=== PATIENT | female | born 1955 | race Hispanic/Latino ===

== ENCOUNTER 2018-03-20 22:16 | Inpatient (IN) | payer BC ==
[2018-03-21 00:58] LABS: Hematocrit 44.3 % (30.3-42.9); Hemoglobin 14.8 gm/dl (10.1-14.3); Mean Corpuscular HGB Conc 34 % (30-34); Mean Corpuscular Hemoglobin 30 pg (28-32); Mean Corpuscular Volume 88 fl (79-97); Platelet Count 204 K/mm3 (140-440); Red Blood Count 5.02 M/mm3 (3.65-5.03)
[2018-03-21 01:02] LABS: Bacteria,Urine 3+ /HPF (Negative); Bilirubin,Urine NEG (Negative); Blood,Urine LG (Negative); Color,Urine Amber (Yellow); Hyaline Casts,Urine 75 /LPF; Mucus,Urine 3+ /HPF
[2018-03-21 01:05] LABS: WBC,Urine > 182.0 /HPF (0.0-6.0)
[2018-03-21 01:14] LABS: Alanine Aminotransferase 14 units/L (7-56); Albumin 4.3 g/dL (3.9-5); BUN/Creatinine Ratio 12; Blood Urea Nitrogen 11 mg/dL (7-17); Calcium 9.4 mg/dL (8.4-10.2); Hemolysis Index 5
[2018-03-21] MEDS ORDERED: ZOFRAN IV ONE (02:32)
[2018-03-21] MEDS ORDERED: TYLENOL PO ONE (02:45)
[2018-03-21 04:08] LABS: Anisocytosis 1+; Band Neutrophils # (Manual) 0.7 K/mm3; Basophils % (Manual) 0 % (0.0-1.8); Eosinophils % (Manual) 0 % (0.0-4.3); Total Cells Counted 100
[2018-03-21] MEDS ORDERED: DILAUDID IV ONE (04:43)
[2018-03-21] MEDS ORDERED: cefTRIAXone 2 GM in NACL 0.9% 20 ML IV ONE (04:43)
--- NOTE | 2018-03-21 04:48 | Emergency Department Report ---
ED Fever HPI - General Chief Complaint: Abdominal Pain Stated Complaint: FEVER,ABDOMINAL PAIN,N/V Time Seen by Provider: 03/21/18 04:33 Source: patient - History of Present Illness Initial Comments: Ms. Christian is a 62-year-old female with history of hypertension and atrial fibrillation. She presents with 2 days of left flank pain. She has fever and chills. Has global headache. Left flank pain radiates to the left upper quadrant and left lower quadrant. Initially when she was evaluated and treated for UTI. She had mild symptoms with dysuria and urinary frequency. She was initially treated with local. Her doctor later changed the medication to doxycycline. She do not have any further symptoms. On Tuesday she developed left flank pain. Subsequently she developed fever and chills. She has nonspecific headache. Timing/Duration: week Fever Severity/Quality: subjective Associated Symptoms: headache, other (flank pain) ED Review of Systems ROS: Stated complaint: FEVER,ABDOMINAL PAIN,N/V Other details as noted in HPI Comment: All other systems reviewed and negative ED Past Medical Hx - Past Medical History Previous Medical History?: Yes Hx Hypertension: Yes Hx Headaches / Migraines: Yes Additional medical history: AFIB - Surgical History Past Surgical History?: Yes Additional Surgical History: Hysterectomy, Back surgery, Spinal Stenosis - Social History Smoking Status: Never Smoker ED Physical Exam - General Limitations: No Limitations General appearance: alert, in no apparent distress, other (very warm to touch) - Head Head exam: Present: atraumatic, normocephalic - Eye Eye exam: Present: normal appearance - ENT ENT exam: Present: mucous membranes moist - Neck Neck exam: Present: normal inspection - Respiratory Respiratory exam: Present: normal lung sounds bilaterally. Absent: respiratory distress, wheezes, rales, rhonchi - Cardiovascular Cardiovascular Exam: Present: regular rate, normal rhythm, normal heart sounds. Absent: systolic murmur, diastolic murmur, rubs, gallop - GI/Abdominal GI/Abdominal exam: Present: soft, normal bowel sounds. Absent: distended, tenderness, guarding, rebound - Extremities Exam Extremities exam: Present: normal inspection - Back Exam Back exam: Present: normal inspection. Absent: CVA tenderness (R), CVA tenderness (L) - Neurological Exam Neurological exam: Present: alert, oriented X3 - Psychiatric Psychiatric exam: Present: normal affect, normal mood - Skin Skin exam: Present: warm, dry, intact, normal color. Absent: rash ED Course Vital Signs 03/20/18 03/20/18 03/21/18 22:39 23:54 03:43 Temperature 100.0 F H 100.0 F H Pulse Rate 94 H 100 H Respiratory 18 18 16 Rate Blood Pressure 123/79 123/79 O2 Sat by Pulse 95 95 Oximetry ED Medical Decision Making - Lab Data Result diagrams: 03/21/18 00:35 03/21/18 00:35 Laboratory Results - last 24 hr 03/20/18 03/21/18 03/21/18 Unknown 00:35 00:35 WBC 22.8 H RBC 5.02 Hgb 14.8 H Hct 44.3 H MCV 88 MCH 30 MCHC 34 RDW 13.0 L Plt Count 204 Add Manual Diff Complete Total Counted 100 Seg Neuts % (Manual) 73.0 H Band Neutrophils % 3.0 Lymphocytes % (Manual) 17.0 Reactive Lymphs % (Man) 0 Monocytes % (Manual) 7.0 Eosinophils % (Manual) 0 Basophils % (Manual) 0 Metamyelocytes % 0 Myelocytes % 0 Promyelocytes % 0 Blast Cells % 0 Nucleated RBC % Not Reportable Seg Neutrophils # Man 16.6 H Band Neutrophils # 0.7 Lymphocytes # (Manual) 3.9 Abs React Lymphs (Man) 0.0 Monocytes # (Manual) 1.6 H Eosinophils # (Manual) 0.0 Basophils # (Manual) 0.0 Metamyelocytes # 0.0 Myelocytes # 0.0 Promyelocytes # 0.0 Blast Cells # 0.0 WBC Morphology Not Reportable Hypersegmented Neuts Not Reportable Hyposegmented Neuts Not Reportable Hypogranular Neuts Not Reportable Smudge Cells Not Reportable Toxic Granulation Not Reportable Toxic Vacuolation Not Reportable Dohle Bodies Not Reportable Pelger-Huet Anomaly Not Reportable Negar Rods Not Reportable Platelet Estimate Appears normal Clumped Platelets Not Reportable Plt Clumps, EDTA Not Reportable Large Platelets Not Reportable Giant Platelets Not Reportable Platelet Satelliting Not Reportable Plt Morphology Comment Not Reportable RBC Morphology Not Reportable Dimorphic RBCs Not Reportable Polychromasia Not Reportable Hypochromasia Not Reportable Poikilocytosis Not Reportable Anisocytosis 1+ Microcytosis Not Reportable Macrocytosis Not Reportable Spherocytes Not Reportable Pappenheimer Bodies Not Reportable Sickle Cells Not Reportable Target Cells Not Reportable Tear Drop Cells Not Reportable Ovalocytes Not Reportable Helmet Cells Not Reportable [place] Bodies Not Reportable [place] Rings Not Reportable Angel Cells Not Reportable Bite Cells Not Reportable Crenated Cell Not Reportable Elliptocytes Not Reportable Acanthocytes (Spur) Not Reportable Rouleaux Not Reportable Hemoglobin C Crystals Not Reportable Schistocytes Not Reportable Malaria parasites Not Reportable Colin Bodies Not Reportable Hem Pathologist Commnt No Sodium 135 L Potassium 4.6 Chloride 94.5 L Carbon Dioxide 28 Anion Gap 17 BUN 11 Creatinine 0.9 Estimated GFR > 60 BUN/Creatinine Ratio 12 Glucose 136 H Calcium 9.4 Total Bilirubin 0.80 AST 14 ALT 14 Alkaline Phosphatase 78 Total Protein 7.8 Albumin 4.3 Albumin/Globulin Ratio 1.2 Lipase Urine Color [place] Urine Turbidity Cloudy Urine pH 5.0 Ur Specific [place] 1.020 Urine Protein 30 mg/dl Urine Glucose (UA) Neg Urine Ketones 20 Urine Blood Lg Urine Nitrite Neg Urine Bilirubin Neg Urine Urobilinogen 2.0 Ur Leukocyte Esterase Mod Urine WBC (Auto) > 182.0 H Urine RBC (Auto) 20.0 U Epithel Cells (Auto) 3.0 Urine Bacteria (Auto) 3+ Hyaline Casts 75 Urine Mucus 3+ 03/21/18 00:35 WBC RBC Hgb Hct MCV MCH MCHC RDW Plt Count Add Manual Diff Total Counted Seg Neuts % (Manual) Band Neutrophils % Lymphocytes % (Manual) Reactive Lymphs % (Man) Monocytes % (Manual) Eosinophils % (Manual) Basophils % (Manual) Metamyelocytes % Myelocytes % Promyelocytes % Blast Cells % Nucleated RBC % Seg Neutrophils # Man Band Neutrophils # Lymphocytes # (Manual) Abs React Lymphs (Man) Monocytes # (Manual) Eosinophils # (Manual) Basophils # (Manual) Metamyelocytes # Myelocytes # Promyelocytes # Blast Cells # WBC Morphology Hypersegmented Neuts Hyposegmented Neuts Hypogranular Neuts Smudge Cells Toxic Granulation Toxic Vacuolation Dohle Bodies Pelger-Huet Anomaly Negar Rods Platelet Estimate Clumped Platelets Plt Clumps, EDTA Large Platelets Giant Platelets Platelet Satelliting Plt Morphology Comment RBC Morphology Dimorphic RBCs Polychromasia Hypochromasia Poikilocytosis Anisocytosis Microcytosis Macrocytosis Spherocytes Pappenheimer Bodies Sickle Cells Target Cells Tear Drop Cells Ovalocytes Helmet Cells [place] Bodies [place] Rings [place] Cells Bite Cells Crenated Cell Elliptocytes Acanthocytes (Spur) Rouleaux Hemoglobin C Crystals Schistocytes Malaria parasites Colin Bodies Hem Pathologist Commnt Sodium Potassium Chloride Carbon Dioxide Anion Gap BUN Creatinine Estimated GFR BUN/Creatinine Ratio Glucose Calcium Total Bilirubin AST ALT Alkaline Phosphatase Total Protein Albumin Albumin/Globulin Ratio Lipase 17 Urine Color Urine Turbidity Urine pH Ur Specific [place] Urine Protein Urine Glucose (UA) Urine Ketones Urine Blood Urine Nitrite Urine Bilirubin Urine Urobilinogen Ur Leukocyte Esterase Urine WBC (Auto) Urine RBC (Auto) U Epithel Cells (Auto) Urine Bacteria (Auto) Hyaline Casts Urine Mucus Vital Signs - 24 hr 03/20/18 03/20/18 03/21/18 22:39 23:54 03:43 Temperature 100.0 F H 100.0 F H Pulse Rate 94 H 100 H Respiratory 18 18 16 Rate Blood Pressure 123/79 123/79 O2 Sat by Pulse 95 95 Oximetry - Medical Decision Making Ms. Mendoza presents with acute pyelonephritis left-sided. Admitted to hospitalist for treatment of severe pain and persistent nausea. First dose IV ceftriaxone given in ED. CT kidney stone protocol ordered. Critical care attestation.: If time is entered above; I have spent that time in minutes in the direct care of this critically ill patient, excluding procedure time. ED Disposition Clinical Impression: Acute pyelonephritis Disposition: OP ADMIT IP TO THIS HOSP Is pt being admited?: Yes Does the pt Need Aspirin: No Condition: Stable Referrals: LEONARD MOROCHO MD [Primary Care Provider] - 3-5 Days Time of Disposition: 04:49
--- NOTE | 2018-03-21 05:39 | Cat Scan Report ---
FINAL REPORT EXAM: CT ABDOMEN PELVIS WO CON HISTORY: left flank pain fever TECHNIQUE: Routine axial imaging was obtained of the abdomen and pelvis without oral or IV contrast. Sagittal and coronal reconstructions were reviewed. FINDINGS: Images through lung bases do not show infiltrates or effusions. The liver is normal size and reveals diminished attenuation compatible with hepatic steatosis. The gallbladder reveals a solitary laminated calcified stone. There are no secondary signs of acute cholecystitis. The biliary tree appears normal. The pancreas, spleen, and adrenal glands appear normal. The kidneys reveal moderate left-sided hydronephrosis secondary to a partially obstructing 6.3 mm stone in the distal right ureter. There are no additional renal stones. There is calcification of the abdominal aorta. The bowel loops are normal in caliber and course. The appendix is not seen with certainty. The uterus has been removed. The bladder appears normal. The skeletal structures reveal arthritic changes lower lumbar spine. IMPRESSION: Moderate left-sided hydronephrosis secondary to a partially obstructing 6.3 mm stone in the distal right ureter. Hepatic steatosis. Gallstones. No secondary signs of acute cholecystitis. Hysterectomy. 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
[2018-03-21] MEDS ORDERED: NORCO 5/325 PO PRN (08:03)
--- NOTE | 2018-03-21 08:14 | History and Physical Report ---
History of Present Illness Date of examination: 03/21/18 Date of admission: 03/21/18 Chief complaint: Left lumbar pain History of present illness: Ms. Christian is a 62-year-old female with history of hypertension and atrial fibrillation presents with 2 days history of left flank pain. She also admits fever and chills. States her Left flank pain radiates to the left lower quadrant to grain area. She also states that she had mild symptoms with dysuria and urinary frequency earlier last week. She was initially treated with abx for UTI and Her doctor later changed the medication to doxycycline. Her initial symptom improved after starting antibiotics but since Tuesday morning she developed left flank pain, followed by fever and chills. As the pain was getting worse she decided to come to hospital. In the ER CT abdomen/pelvis without contrast showed left hydronephrosis and left ureteric 6.8 mm stone. Urology was consulted from the ER. Patient is getting admitted for further evaluation and management. Past medical History: h/o hypertension, migraine headache and atrial fibrillation Past surgical History: s/p hysterectomy in 2008 and back surgery on 2009 Social History: Lives with her sister, denies any smoking, drinking and elicit drug abuse. Family History: Significant for Alzheimer disease since, squamous cell cancer in father, cervical cancer in sister Review of System: Constitutional: + fever, + chills, no weight loss Ears, eyes, nose, mouth and throat: no nasal congestion, no nasal discharge, no sinus pressure, no vision change, no red eye. Neck: No neck pain or rigidity. Cardiovascular: No chest pain, no orthopnea, no palpitations, no leg swelling Respiratory: No shortness of breath, no cough, no congestion, no wheezing Gastrointestinal: + Left flank pain, + nausea, + vomiting Genitourinary : + dysuria, no hematuria Musculoskeletal: no joint swelling or muscle ache Integumentary: no rash, no pruritis Neurological: no parathesias, no numbness, no tingling Endocrine: no cold or heat intolerance, no polyuria or polydipsia Hematologic/Lymphatic: no easy bruising, no easy bleeding, no gland swelling Allergic/Immunologic: no urticaria, no angioedema. Medications and Allergies Allergies Allergy/AdvReac Type Severity Reaction Status Date / Time No Known Allergies Allergy Verified 03/21/18 04:50 Home Medications Medication Instructions Recorded Confirmed Last Taken Type Aspirin BABY CHEW TAB 81 mg PO DAILY 03/22/18 03/22/18 Unknown History Escitalopram Oxalate [Lexapro] 20 mg PO 03/22/18 Unknown History Metoprolol [Lopressor] 25 mg PO BID 03/22/18 03/22/18 Unknown History Active Meds: Active Medications Acetaminophen (Tylenol) 650 mg PO Q4H PRN PRN Reason: Pain MILD(1-3)/Fever >100.5/SHAW Acetaminophen/Hydrocodone Bitart ([place] 5/325) 2 each PO Q6H PRN PRN Reason: Pain, Moderate (4-6) Docusate Sodium (Colace) 100 mg PO BID JORGE LUIS Enoxaparin Sodium (Lovenox) 30 mg SUB-Q QDAY JORGE LUIS Famotidine (Pepcid) 10 mg PO BID JORGE LUIS Piperacillin Sod/Tazobactam Sod (Zosyn/Ns 3.375gm/50ml) 3.375 gm in 50 mls @ 100 mls/hr IV Q8HR JORGE LUIS; Protocol Dextrose/Sodium Chloride (D5ns) 1,000 mls @ 75 mls/hr IV DIRECT JORGE LUIS Morphine Sulfate (Morphine) 2 mg IV Q4H PRN PRN Reason: Pain, Moderate (4-6) Ondansetron HCl (Zofran) 4 mg IV Q8H PRN PRN Reason: Nausea And Vomiting Sodium Chloride (Sodium Chloride Flush Syringe 10 Ml) 10 ml IV PRN PRN PRN Reason: LINE FLUSH Sodium Chloride (Sodium Chloride Flush Syringe 10 Ml) 10 ml IV BID JORGE LUIS Exam - Physical Exam Narrative exam: GENERAL: well-developed morbidly obese white female lying on bed appeared to be in no discomfort. HEENT: Normocephalic. Atraumatic. No conjunctival congestion or icterus. Patient has moist mucous membranes. NECK: Supple. Trachea midline. CHEST/LUNGS: Clear to auscultated bilaterally, breathing nonlabored. No wheezes crackles or rhonchi. HEART/CARDIOVASCULAR: Regular in rate and rhythm. S1 and S2 positive. ABDOMEN: Abdomen is soft, left CVA tenderness on deep palpation. Patient has normal bowel sounds. SKIN: There is no rash. Warm and dry. NEURO: No focal motor deficit. Follows command. MUSCULOSKELETAL: No joint effusion or tenderness. EXTRIMITY: No edema, no cyanosis or clubbing. PSYCH: Cooperative. - Constitutional Vitals: Temp Pulse Resp BP Pulse Ox 98.6 F 72 18 110/61 100 03/21/18 07:00 03/21/18 07:00 03/21/18 07:00 03/21/18 07:00 03/21/18 07:00 Results - Labs CBC & Chem 7: 03/22/18 07:54 03/22/18 07:54 Labs: Abnormal lab results 03/20/18 03/21/18 03/21/18 Range/Units Unknown 00:35 00:35 WBC 22.8 H (4.5-11.0) K/mm3 Hgb 14.8 H (10.1-14.3) gm/dl Hct 44.3 H (30.3-42.9) % RDW 13.0 L (13.2-15.2) % Seg Neuts % (Manual) 73.0 H (40.0-70.0) % Seg Neutrophils # Man 16.6 H (1.8-7.7) K/mm3 Monocytes # (Manual) 1.6 H (0.0-0.8) K/mm3 Sodium 135 L (137-145) mmol/L Chloride 94.5 L (98-107) mmol/L Glucose 136 H (65-100) mg/dL Urine WBC (Auto) > 182.0 H (0.0-6.0) /HPF - Imaging and Cardiology CT scan - abdomen: report reviewed (left hydronephrosis with 6.8 mm ureteric stone) Assessment and Plan Sepsis, likely due to acute left pyelonephritis -We'll place on Zosyn empirically - Obtain urine culture and blood culture - Continue sepsis protocol, trend lactic acid Left hydronephrosis with left ureteric stone - Consulted Dr. Snyder, plan to take for cystoscopy today Hypertension, stable now - will continue to monitor History of paroxysmal Atrial fibrillation, - normal sinus rhythm now - Patient takes metoprolol tartrate 25 twice a day for rate control - Not on any anticoagulation at home Morbid obesity, dietary recommendation when clinically stable History of migraine, takes Lexapro outpatient DVT prophylaxis, with Lovenox
[2018-03-21] MEDS: MORPHINE IV PRN ×3 (08:16→21:47)
[2018-03-21] MEDS: ZOFRAN IV PRN ×2 (08:17→19:29)
[2018-03-21] MEDS: SODIUM CHLORIDE FLUSH SYRINGE 10 ML IV PRN (08:17)
--- NOTE | 2018-03-21 08:23 | Consultation ---
History of Present Illness - Reason for Consult Consult date: 03/14/18 - History of Present Illness Ms. Christian is a 62-year-old female with history of hypertension and atrial fibrillation. She presents with 2 days of left flank pain. She has fever and chills. Has global headache. Left flank pain radiates to the left upper quadrant and left lower quadrant. Initially when she was evaluated and treated for UTI. She had mild symptoms with dysuria and urinary frequency. She was initially treated with local. Her doctor later changed the medication to doxycycline. She do not have any further symptoms. On Tuesday she developed left flank pain. Subsequently she developed fever and chills. She has nonspecific headache. female family at bedside abd soft CTAP---6mm left distal stone A/P obstructing 6mm left distal stone npo cysto today written info given Medications and Allergies Allergies Allergy/AdvReac Type Severity Reaction Status Date / Time No Known Allergies Allergy Verified 03/21/18 04:50 Active Meds: Active Medications Acetaminophen (Tylenol) 650 mg PO Q4H PRN PRN Reason: Pain MILD(1-3)/Fever >100.5/SHAW Acetaminophen/Hydrocodone Bitart ([place] 5/325) 2 each PO Q6H PRN PRN Reason: Pain, Moderate (4-6) Docusate Sodium (Colace) 100 mg PO BID JORGE LUIS Enoxaparin Sodium (Lovenox) 30 mg SUB-Q QDAY JORGE LUIS Famotidine (Pepcid) 10 mg PO BID JORGE LUIS Piperacillin Sod/Tazobactam Sod (Zosyn/Ns 3.375gm/50ml) 3.375 gm in 50 mls @ 100 mls/hr IV Q8HR JORGE LUIS; Protocol Dextrose/Sodium Chloride (D5ns) 1,000 mls @ 75 mls/hr IV DIRECT JORGE LUIS Morphine Sulfate (Morphine) 2 mg IV Q4H PRN PRN Reason: Pain, Moderate (4-6) Last Admin: 03/21/18 08:16 Dose: 2 mg Ondansetron HCl (Zofran) 4 mg IV Q8H PRN PRN Reason: Nausea And Vomiting Last Admin: 03/21/18 08:17 Dose: 4 mg Sodium Chloride (Sodium Chloride Flush Syringe 10 Ml) 10 ml IV PRN PRN PRN Reason: LINE FLUSH Last Admin: 03/21/18 08:17 Dose: 10 ml Sodium Chloride (Sodium Chloride Flush Syringe 10 Ml) 10 ml IV BID JORGE LUIS Exam - Constitutional Vitals: Temp Pulse Resp BP Pulse Ox 98.6 F 72 18 110/61 100 03/21/18 07:00 03/21/18 07:00 03/21/18 08:16 03/21/18 07:00 03/21/18 07:00 Results - Labs CBC & Chem 7: 03/21/18 00:35 03/21/18 00:35 Labs: Abnormal lab results 03/20/18 03/21/18 03/21/18 Range/Units Unknown 00:35 00:35 WBC 22.8 H (4.5-11.0) K/mm3 Hgb 14.8 H (10.1-14.3) gm/dl Hct 44.3 H (30.3-42.9) % RDW 13.0 L (13.2-15.2) % Seg Neuts % (Manual) 73.0 H (40.0-70.0) % Seg Neutrophils # Man 16.6 H (1.8-7.7) K/mm3 Monocytes # (Manual) 1.6 H (0.0-0.8) K/mm3 Sodium 135 L (137-145) mmol/L Chloride 94.5 L (98-107) mmol/L Glucose 136 H (65-100) mg/dL Urine WBC (Auto) > 182.0 H (0.0-6.0) /HPF
[2018-03-21] MEDS ORDERED: LOVENOX SUB-Q SCH (10:00)
[2018-03-21] MEDS: ZOSYN/NS 3.375GM/50ML 3.375 GM/50 ML BAG IV SCH ×4 (10:01→23:43)
[2018-03-21] MEDS: TYLENOL PO PRN ×3 (10:10→21:47)
[2018-03-21] MEDS: LOVENOX SUB-Q SCH (10:22)
[2018-03-21] MEDS ORDERED: XYLOCAINE MPF 2% ONE (11:44)
[2018-03-21] MEDS ORDERED: DIPRIVAN 10 MG/ML IV ONE (11:45)
[2018-03-21] MEDS ORDERED: SUBLIMAZE ONE (11:45)
[2018-03-21] MEDS ORDERED: LACTATED RINGERS 1,000 ML ONE (11:46)
[2018-03-21] MEDS ORDERED: PEPCID IV ONE (11:46)
[2018-03-21] MEDS ORDERED: VERSED ONE (11:47)
--- NOTE | 2018-03-21 12:02 | Anesthesia Day of Surgery ---
Anesthesia Day of Surgery - Day of Surgery Patient Examined: Yes Patient H&P Reviewed: Yes Patient is NPO: Yes
--- NOTE | 2018-03-21 12:03 | Anesthesia Consultation ---
Anesthesia Consult and Med Hx Date of service: 03/21/18 - Airway Anesthetic Teeth Evaluation: Poor ROM Head & Neck: Adequate Mental/Hyoid Distance: Adequate Mallampati Class: Class IV Intubation Access Assessment: Possibly Difficult - Pulmonary Exam CTA: Yes - Cardiac Exam Cardiac Exam: RRR - Pre-Operative Health Status ASA Pre-Surgery Classification: ASA3 Proposed Anesthetic Plan: General (GERD controlled. LMA ok) - Cardiovascular System Hx Hypertension: Yes
[2018-03-21] MEDS ORDERED: ZOFRAN IV PRN (12:06)
[2018-03-21] MEDS ORDERED: DILAUDID IV PRN (12:06)
[2018-03-21] MEDS ORDERED: OMNIPAQUE 300 MG/50 ML (CATH LAB) IV ONE (12:20)
[2018-03-21] MEDS ORDERED: ZOFRAN ONE (12:30)
--- NOTE | 2018-03-21 12:43 | Post Operative Note ---
Pre-op diagnosis: left ureteral stone, UTI Post-op diagnosis: same Procedure: cysto, rpg, left stent----short internal string Anesthesia: MATT Surgeon: RUBY AMAYA Pathology: none Condition: stable Disposition: PACU (jose luis on chart, appt 1-2 weeks after discharge)
[2018-03-21] MEDS ORDERED: NARCAN 0.4 MG/1 ML IV PRN (12:45)
[2018-03-21] MEDS ORDERED: NACL 0.45% 1000 ML 1,000 ML IV SCH (13:00)
[2018-03-21] MEDS ORDERED: ANCEF/NS 1 GM/50 ML 1 GM/50 ML BAG IV SCH (13:00)
[2018-03-21] MEDS: SODIUM CHLORIDE FLUSH SYRINGE 10 ML IV SCH ×2 (14:22→21:49)
[2018-03-21] MEDS: COLACE PO SCH ×2 (14:22→21:50)
[2018-03-21] MEDS: PEPCID PO SCH ×2 (14:22→21:46)
[2018-03-21] MEDS: ceFAZolin 1 GM in NACL 0.9% 20 ML IV SCH ×3 (15:04→21:46)
[2018-03-22] MEDS: TYLENOL PO PRN ×3 (01:57→20:23)
[2018-03-22] MEDS: D5NS 1,000 ML IV SCH (02:08)
[2018-03-22] MEDS: MORPHINE IV PRN (02:08)
[2018-03-22] MEDS: ceFAZolin 1 GM in NACL 0.9% 20 ML IV SCH ×3 (05:39→21:42)
[2018-03-22] MEDS: ZOSYN/NS 3.375GM/50ML 3.375 GM/50 ML BAG IV SCH (05:53)
[2018-03-22 08:37] LABS: Hematocrit 35.9 % (30.3-42.9); Hemoglobin 12.4 gm/dl (10.1-14.3); Mean Corpuscular HGB Conc 34 % (30-34); Mean Corpuscular Hemoglobin 30 pg (28-32); Mean Corpuscular Volume 87 fl (79-97); Platelet Count 138 K/mm3 (140-440); Red Blood Count 4.12 M/mm3 (3.65-5.03); Red Cell Distribution Width 12.8 % (13.2-15.2)
[2018-03-22 08:48] LABS: Calcium 8.2 mg/dL (8.4-10.2)
[2018-03-22] MEDS: COLACE PO SCH ×2 (10:04→21:41)
[2018-03-22] MEDS: SODIUM CHLORIDE FLUSH SYRINGE 10 ML IV SCH ×2 (10:05→21:42)
[2018-03-22] MEDS: PEPCID PO SCH ×2 (10:05→21:54)
[2018-03-22] MEDS: NORCO 5/325 PO PRN (10:05)
[2018-03-22] MEDS: LOVENOX SUB-Q SCH (10:05)
[2018-03-22] MEDS ORDERED: NON-FORMULARY (Aspirin Baby Chew Tab 81 MG) PO SCH (10:15)
[2018-03-22] MEDS: LOPRESSOR PO SCH ×2 (10:25→21:41)
[2018-03-22] MEDS ORDERED: NON-FORMULARY (Escitalopram Oxalate [Lexapro] 20 MG) PO SCH (10:30)
[2018-03-22] MEDS: LEXAPRO PO SCH (10:57)
[2018-03-22] MEDS ORDERED: LOPRESSOR PO SCH (11:00)
[2018-03-22 11:15] LABS: Band Neutrophils # (Manual) 1.3 K/mm3; Basophils % (Manual) 0 % (0.0-1.8); Eosinophils % (Manual) 0 % (0.0-4.3); Total Cells Counted 100
[2018-03-22 11:16] LABS: Platelet Estimate Cons; RBC Morphology Normal
[2018-03-22] MEDS ORDERED: PNEUMOVAX 23 IM ONE (12:00)
[2018-03-22] MEDS: BABY ASPIRIN PO SCH (12:40)
--- NOTE | 2018-03-22 12:41 | Operative Report ---
PREOPERATIVE DIAGNOSIS: Left ureteral stone, 6 mm. POSTOPERATIVE DIAGNOSES: 1. Left ureteral stone, 6 mm. 2. Pyonephrosis with elevated white count. PROCEDURE PERFORMED: Cystoscopy, bilateral retrograde pyelograms, left double- J stent placement. SURGEON: Candelario Snyder MD ANESTHESIA: General. ESTIMATED BLOOD LOSS: Minimal. FLUIDS: Crystalloid. COMPLICATIONS: No complications. INDICATIONS: This 62-year-old female presented in the ER with left flank pain for several weeks, a fever of 101. CT abdomen and pelvis confirmed a 6 mm mid ureteral stone with hydronephrosis. Due to the acute nature, we discussed the options. She agreed to proceed with endoscopic evaluation. DESCRIPTION OF PROCEDURE: The patient was taken to the operative suite, placed in a supine position. After adequate general anesthesia, prepped and draped in a sterile fashion. Pancystourethroscopy was performed with a 22-Baham[place] Storz cystoscope. Bladder, some mild erythema. Both ureteral orifices in normal position. Bilateral retrograde pyelograms were obtained with an 8 [place] Sanjeev catheter and 8 mL of contrast. No filling defects or obstruction on the right and left side obvious filling defect mid to distal ureter, consistent with a stone. A 0.035 Glidewire was placed, deshawn pus could be appreciated from the left ureter. At that point, I elected to not do an ureteroscopy. We put up a 6-B[place]amian 24 cm double-J stent with a short internal string. Urine culture was obtained. The patient tolerated the procedure well. Her bladder was drained. She was extubated and taken to recovery room. She will be admitted to the hospitalist service, Tatiana and Eladio on the chart for postoperative management. She will probably need ureteroscopy or lithotripsy in 1-2 weeks. STACEY
[2018-03-22] MEDS ORDERED: LANOXIN IV ONE (12:42)
--- NOTE | 2018-03-22 13:22 | Consultation ---
History of Present Illness Consult date: 03/22/18 Requesting physician: MORGAN SILVA Consult reason: atrial fibrillation History of present illness: The pt is a 62 YO female with a past medical history significant for HTN and paroxysmal atrial fibrillation (diagnosed 08/2016, not on any anticoagulation at home - only on ASA 81). She is followed in our office by Dr. Bell (was last seen 09/2016). She presented on 03/21/2018 with complaints of left flank pain with fever and chills. CT abdomen/pelvis without contrast showed left hydronephrosis and left ureteric 6.8 mm stone and pt subsequently underwent cysto, rpg, left stent placement yesterday per urology. Pt is also being treated for sepsis, likely due to acute left pyelonephritis. Post-operatively, she developed AFib with RVR (HR 180s) and thus cardiology has been consulted. On evaluation, pt c/o fever and chills. She denies any current cardiac complaints, including chest pain, palpitations or SOB. Echo done 08/2016 showed EF 55-60%, trace MR, tract TR, pseudonormalization pattern. Treadmill stress test done 08/2016 was incomplete as the pt did not achieve target HR, moderate exercise capacity, negative for angina and ischemia within the limitations of the test. Past History Past Medical History: atrial fib, hypertension Medications and Allergies Allergies Allergy/AdvReac Type Severity Reaction Status Date / Time No Known Allergies Allergy Verified 03/21/18 04:50 Home Medications Medication Instructions Recorded Confirmed Last Taken Type Aspirin BABY CHEW TAB 81 mg PO DAILY 03/22/18 03/22/18 Unknown History Escitalopram Oxalate [Lexapro] 20 mg PO 03/22/18 Unknown History Metoprolol [Lopressor] 25 mg PO BID 03/22/18 03/22/18 Unknown History Active Meds: Active Medications Acetaminophen (Tylenol) 650 mg PO Q4H PRN PRN Reason: Pain MILD(1-3)/Fever >100.5/SHAW Last Admin: 03/22/18 06:50 Dose: 650 mg Acetaminophen/Butalbital/Caffeine (Fioricet) 1 tab PO Q4H PRN PRN Reason: Headache Acetaminophen/Hydrocodone Bitart (Paoli 5/325) 2 each PO Q6H PRN PRN Reason: Pain, Moderate (4-6) Last Admin: 03/22/18 10:05 Dose: 2 each Aspirin (Baby Aspirin) 81 mg PO QDAY [facility] Last Admin: 03/22/18 12:40 Dose: 81 mg Docusate Sodium (Colace) 100 mg PO BID [facility] Last Admin: 03/22/18 10:04 Dose: 100 mg Enoxaparin Sodium (Lovenox) 40 mg SUB-Q QDAY@1000 [facility] Last Admin: 03/22/18 10:05 Dose: 40 mg Escitalopram Oxalate (Lexapro) 20 mg PO QDAY [facility] Last Admin: 03/22/18 10:57 Dose: 20 mg Famotidine (Pepcid) 10 mg PO BID [facility] Last Admin: 03/22/18 10:05 Dose: 10 mg Dextrose/Sodium Chloride (D5ns) 1,000 mls @ 75 mls/hr IV DIRECT [facility] Last Admin: 03/22/18 02:08 Dose: 75 mls/hr Sodium Chloride (Nacl 0.45% 1000 Ml) 1,000 mls @ 100 mls/hr IV DIRECT [facility] Cefazolin Sodium 1 gm/ Sodium (Chloride) 20 mls @ 2 mls/min IV Q8HR [facility] Last Admin: 03/22/18 05:39 Dose: 2 mls/min Metoprolol Tartrate (Lopressor) 25 mg PO BID [facility] Last Admin: 03/22/18 10:25 Dose: 25 mg Morphine Sulfate (Morphine) 2 mg IV Q4H PRN PRN Reason: Pain, Moderate (4-6) Naloxone HCl (Narcan 0.4 Mg/1 Ml) 0.1 mg IV Q2MIN PRN PRN Reason: Res Rate </= 8 or 02 SAT < 92% Ondansetron HCl (Zofran) 4 mg IV Q8H PRN PRN Reason: Nausea And Vomiting Last Admin: 03/21/18 19:29 Dose: 4 mg Sodium Chloride (Sodium Chloride Flush Syringe 10 Ml) 10 ml IV PRN PRN PRN Reason: LINE FLUSH Last Admin: 03/21/18 08:17 Dose: 10 ml Sodium Chloride (Sodium Chloride Flush Syringe 10 Ml) 10 ml IV BID [facility] Last Admin: 03/22/18 10:05 Dose: 10 ml Review of Systems Constitutional: fever, chills, no weight loss, no weight gain Ears, nose, mouth and throat: no ear pain, no nose pain, no sinus pressure, no sinus pain Cardiovascular: high blood pressure, no chest pain, no orthopnea, no palpitations, no rapid/irregular heart beat, no edema, no syncope, no lightheadedness, no shortness of breath, no dyspnea on exertion, no leg edema Respiratory: no cough, no shortness of breath, no dyspnea on exertion, no congestion, no wheezing, no pain on inspiration Gastrointestinal: no abdominal pain, no nausea, no vomiting, no diarrhea, no constipation, no change in bowel habits Genitourinary Female: flank pain (left), no pelvic pain, no dysuria, no urinary frequency, no urgency Musculoskeletal: no neck stiffness, no neck pain Integumentary: no rash, no pruritis, no redness, no sores, no wounds Neurological: no head injury, no paralysis, no weakness, no parathesias, no numbness, no tingling, no seizures, no syncope Psychiatric: no anxiety Endocrine: no cold intolerance, no heat intolerance Hematologic/Lymphatic: no easy bruising, no easy bleeding, no lymphadenopathy Allergic/Immunologic: no urticaria, no wheezing, no persistent infections Physical Examination Vital Signs Temp Pulse Resp BP Pulse Ox 100.0 F H 94 H 18 123/79 95 03/20/18 22:39 03/20/18 22:39 03/20/18 22:39 03/20/18 22:39 03/20/18 22:39 General appearance: no acute distress HEENT: Positive: PERRL, Normocephaly, Mucus Membranes Moist Neck: Positive: neck supple, trachea midline Cardiac: Positive: irregularly irregular, S1/S2, Tachycardia Lungs: Positive: clear to auscultation Neuro: Positive: Grossly Intact Abdomen: Positive: Soft. Negative: Tender Skin: Negative: Rash Musculoskeletal: No Fluid Collection, No Pain, Normal Range of Motion Extremities: Absent: edema Results 03/22/18 07:54 03/22/18 07:54 CBC 03/22/18 Range/Units 07:54 WBC 22.2 H (4.5-11.0) K/mm3 RBC 4.12 (3.65-5.03) M/mm3 Hgb 12.4 (10.1-14.3) gm/dl Hct 35.9 D (30.3-42.9) % Plt Count 138 L (140-440) K/mm3 Comprehensive Metabolic Panel 03/22/18 Range/Units 07:54 Sodium 137 (137-145) mmol/L Potassium 3.1 L D (3.6-5.0) mmol/L Chloride 98.4 (98-107) mmol/L Carbon Dioxide 25 (22-30) mmol/L BUN 12 (7-17) mg/dL Creatinine 1.0 (0.7-1.2) mg/dL Glucose 144 H (65-100) mg/dL Calcium 8.2 L (8.4-10.2) mg/dL - Imaging and Cardiology Echo: report reviewed (08/2016 showed EF 55-60%, trace MR, tract TR, pseudonormalization pattern. ) EKG: report reviewed, image reviewed EKG interpretations - Telemetry EKG Rhythm: Atrial Fibrillation - EKG Supraventricular dysrhythmia: atrial fibrillation Assessment and Plan Assessment: Paroxysmal atrial fibrillation with RVR - thyroid profile WNL Left hydronephrosis and left ureteric 6.8 mm stone s/p cysto, rpg, left stent placement 03/21/2018 per urology Sepsis, likely due to acute left pyelonephritis Hypokalemia - serum Mg WNL H/o HTN Plan: F/u echo. Optimize HR - initiate IV amio. Cont PO lopressor BID and titrate as tolerated. Replete K+ and repeat BMP in AM. Pt with current CHADS score of 2 and thus may benefit from fpc systemic AC in regards to atrial fibrillation. However, pt underwent urological procedure yesterday. Recommend heparin gtt at this time if okay with urology. D/ w Dr. Silva. Assessment and plan reviewed with pt at bedside. The patient has been seen in conjunction with Dr. Fernández who agrees with the assessment and plan of care.
[2018-03-22] MEDS ORDERED: CORDARONE 150 MG in D5W 97 ML IV ONE (13:38)
[2018-03-22] MEDS ORDERED: K-DUR PO ONE (13:38)
--- NOTE | 2018-03-22 15:11 | Progress Note ---
Assessment and Plan Sepsis, likely due to acute left pyelonephritis - cont with cefazolin - gm -ve rods on urine culture and blood culture negative - Continue sepsis protocol, trend lactic acid Left hydronephrosis with left ureteric stone - Consulted Dr. Snyder, s/p cystoscopy with RPG and left stent placement on Hypertension, stable now - will continue to monitor Paroxysmal Atrial fibrillation, with RVR - Patient takes metoprolol tartrate 25 twice a day for rate control - Not on any anticoagulation at home - was NSR on admission but now converted to atfib - consulted cardiology, transfer to tele - placed on amioderone drip, start on heparin drip for anticoagulation Morbid obesity, dietary recommendation when clinically stable History of migraine, takes Lexapro outpatient DVT prophylaxis, with Lovenox Subjective Date of service: 03/22/18 Interval history: Patient seen and examined. Medical records and medication list reviewed. No acute event overnight noted by the RN. Patient denies any chest pain or difficulty breathing. Patient is tolerating diet. States her urine has been dark since the procedure yesterday She also noted to convert atrophic fibrillation with heart rate above 140 since this morning Discussed plan of care at bedside with patient. Objective - Exam Narrative Exam: GENERAL: well-developed morbidly obese white female lying on bed appeared to be in no discomfort. HEENT: Normocephalic. Atraumatic. No conjunctival congestion or icterus. Patient has moist mucous membranes. NECK: Supple. Trachea midline. CHEST/LUNGS: Clear to auscultated bilaterally, breathing nonlabored. No wheezes crackles or rhonchi. HEART/CARDIOVASCULAR: IrRegular in rate and rhythm. S1 and S2 positive. ABDOMEN: Abdomen is soft, left CVA tenderness on deep palpation. Patient has normal bowel sounds. SKIN: There is no rash. Warm and dry. NEURO: No focal motor deficit. Follows command. MUSCULOSKELETAL: No joint effusion or tenderness. EXTRIMITY: No edema, no cyanosis or clubbing. PSYCH: Cooperative. - Constitutional Vitals: Vital Signs - 12hr 03/22/18 03/22/18 03/22/18 04:43 08:04 08:10 Temperature 100.8 F H 99.2 F Pulse Rate 89 86 Pulse Rate [ From Monitor] Respiratory 18 20 Rate Blood Pressure 101/66 Blood Pressure 107/61 [Left] O2 Sat by Pulse 93 93 Oximetry 03/22/18 03/22/18 03/22/18 11:44 13:07 14:58 Temperature 98.6 F Pulse Rate 62 180 H Pulse Rate [ 182 H From Monitor] Respiratory 20 Rate Blood Pressure 99/56 Blood Pressure [Left] O2 Sat by Pulse 96 Oximetry - Labs CBC & Chem 7: 03/23/18 04:34 03/23/18 04:34 Labs: Abnormal lab results 03/22/18 03/22/18 Range/Units 07:54 07:54 WBC 22.2 H (4.5-11.0) K/mm3 RDW 12.8 L (13.2-15.2) % Plt Count 138 L (140-440) K/mm3 Seg Neuts % (Manual) 85.0 H (40.0-70.0) % Lymphocytes % (Manual) 3.0 L (13.4-35.0) % Seg Neutrophils # Man 18.9 H (1.8-7.7) K/mm3 Lymphocytes # (Manual) 0.7 L (1.2-5.4) K/mm3 Monocytes # (Manual) 1.3 H (0.0-0.8) K/mm3 Potassium 3.1 L D (3.6-5.0) mmol/L Glucose 144 H (65-100) mg/dL Calcium 8.2 L (8.4-10.2) mg/dL
[2018-03-22] MEDS: CORDARONE 900 MG in D5W 482 ML IV SCH (15:56)
[2018-03-22] MEDS ORDERED: HEPARIN 10,000 UNITS/10 ML IV ONE (16:10)
[2018-03-22] MEDS ORDERED: HEPARIN/ 0.45% NACL-25,000 UNIT/500 ML 25,000 UNIT/500 ML BAG IV SCH (17:00)
[2018-03-22] MEDS: ZOFRAN IV PRN (20:23)
[2018-03-22] MEDS: SODIUM CHLORIDE FLUSH SYRINGE 10 ML IV PRN (20:27)
[2018-03-23 05:50] LABS: Hemoglobin 11.9 gm/dl (10.1-14.3); Mean Corpuscular HGB Conc 34 % (30-34); Mean Corpuscular Hemoglobin 30 pg (28-32); Mean Corpuscular Volume 88 fl (79-97); Platelet Count 138 K/mm3 (140-440); Red Blood Count 3.97 M/mm3 (3.65-5.03); Red Cell Distribution Width 13.3 % (13.2-15.2)
[2018-03-23 06:08] LABS: Calcium 8.2 mg/dL (8.4-10.2)
[2018-03-23] MEDS: SODIUM CHLORIDE FLUSH SYRINGE 10 ML IV PRN (06:59)
[2018-03-23] MEDS: ceFAZolin 1 GM in NACL 0.9% 20 ML IV SCH ×3 (06:59→21:49)
[2018-03-23 07:14] LABS: Band Neutrophils # (Manual) 4.8 K/mm3; Basophils % (Manual) 0 % (0.0-1.8); Eosinophils % (Manual) 0 % (0.0-4.3); Total Cells Counted 100
[2018-03-23 07:15] LABS: Anisocytosis 1+; Platelet Estimate Consistent w Auto
[2018-03-23] MEDS: NORCO 5/325 PO PRN ×3 (08:12→21:47)
[2018-03-23] MEDS: D5NS 1,000 ML IV SCH ×2 (08:15→21:47)
[2018-03-23] MEDS: CORDARONE 900 MG in D5W 482 ML IV SCH (08:52)
[2018-03-23] MEDS ORDERED: CEPACOL X STRENGTH MM PRN (09:24)
[2018-03-23] MEDS: BABY ASPIRIN PO SCH (09:34)
[2018-03-23] MEDS: LOVENOX SUB-Q SCH (09:34)
[2018-03-23] MEDS: LOPRESSOR PO SCH ×2 (09:34→21:50)
[2018-03-23] MEDS: LEXAPRO PO SCH (09:38)
[2018-03-23] MEDS: PEPCID PO SCH ×2 (09:39→21:50)
[2018-03-23] MEDS: SODIUM CHLORIDE FLUSH SYRINGE 10 ML IV SCH ×2 (09:40→21:52)
--- NOTE | 2018-03-23 11:13 | Progress Note ---
Assessment and Plan Assessment: Paroxysmal atrial fibrillation with RVR --> SR; thyroid profile WNL Left hydronephrosis and left ureteric 6.8 mm stone s/p cysto, rpg, left stent placement 03/21/2018 per urology Sepsis, likely due to acute left pyelonephritis Hypokalemia - serum Mg WNL H/o HTN Plan: F/u echo. Cont IV amio and initiate PO amio 200mg BID. Cont lopressor as tolerated Pt with current CHADS score of 2 and thus may benefit from correction systemic AC in regards to atrial fibrillation. However, pt underwent urological procedure yesterday. Recommend heparin gtt at this time if okay with urology. D/ w Dr. Ochoa. Assessment and plan reviewed with pt at bedside. The patient has been seen in conjunction with Dr. JOSH Rubin who agrees with the assessment and plan of care. Subjective Date of service: 03/23/18 Principal diagnosis: paroxysmal atrial fibrillation with RVR Interval history: Pt resting comfortably in bed, no current cardiac complaints. Currently in SR, had multiple bouts of AFib with RVR overnight. amio gtt infusing. Objective Last Vital Signs Temp 98.1 F 03/23/18 07:17 Pulse 80 03/23/18 07:17 Resp 20 03/23/18 07:17 BP 107/57 03/23/18 07:17 Pulse Ox 94 03/23/18 07:17 - Physical Examination General: No Apparent Distress HEENT: Positive: PERRL, Normocephaly, Mucus Membranes Moist Neck: Positive: neck supple, trachea midline Cardiac: Positive: Reg Rate and Rhythm, S1/S2 Lungs: Positive: clear to auscultation Neuro: Positive: Grossly Intact Abdomen: Positive: Soft. Negative: Tender Skin: Negative: Rash Musculoskeletal: No Fluid Collection, No Pain, Normal Range of Motion Extremities: Absent: edema - Labs and Meds CBC 03/23/18 Range/Units 04:34 WBC 21.0 H (4.5-11.0) K/mm3 RBC 3.97 (3.65-5.03) M/mm3 Hgb 11.9 (10.1-14.3) gm/dl Hct 35.0 (30.3-42.9) % Plt Count 138 L (140-440) K/mm3 Comprehensive Metabolic Panel 05/31/18 Range/Units 04:34 Sodium 138 (137-145) mmol/L Potassium 4.0 D (3.6-5.0) mmol/L Chloride 100.9 (98-107) mmol/L Carbon Dioxide 28 (22-30) mmol/L BUN 12 (7-17) mg/dL Creatinine 1.0 (0.7-1.2) mg/dL Glucose 135 H (65-100) mg/dL Calcium 8.2 L (8.4-10.2) mg/dL - Imaging and Cardiology EKG: report reviewed, image reviewed Echo: report reviewed (08/2016 showed EF 55-60%, trace MR, tract TR, pseudonormalization pattern. ) - Telemetry EKG Rhythm: Sinus Rhythm
--- NOTE | 2018-03-23 13:02 | Fluoroscopy Report ---
FLUOROSCOPY RETROGRADE UROGRAPHY: HISTORY: Left ureteral stone. FINDINGS: Fluoroscopy was provided by radiology during retrograde urography by the urologist. 8 fluoroscopic images were captured. The right pyelogram is normal. The left pyelogram demonstrates a filling defect in the mid to distal left ureter consistent with an obstructing ureteral stone. Subsequent images demonstrate placement of a left ureteral stent which adequately drains the left renal collecting system. Please correlate with the procedural report as needed. IMPRESSION: Left ureteral stone. Left ureteral stent placement.
[2018-03-23] MEDS: CORDARONE PO SCH ×3 (13:05→21:51)
[2018-03-23] MEDS: COLACE PO SCH ×2 (13:21→21:47)
--- NOTE | 2018-03-23 14:16 | Progress Note ---
Assessment and Plan Sepsis, likely due to acute left pyelonephritis - cont with cefazolin - gm -ve rods on urine culture and blood culture negative - Continue sepsis protocol, trend lactic acid Left hydronephrosis with left ureteric stone - Consulted Dr. Snyder, s/p cystoscopy with RPG and left stent placement on Hypertension, stable now - will continue to monitor Paroxysmal Atrial fibrillation, with RVR - Patient takes metoprolol tartrate 25 twice a day for rate control - Not on any anticoagulation at home - was NSR on admission but now converted to atfib since 03/22 - consulted cardiology, transferred to tele - placed on amioderone drip and initiate PO amio 200mg BID, started on heparin drip for anticoagulation - F/u echo. Cont lopressor as tolerated Morbid obesity, dietary recommendation when clinically stable History of migraine, takes Lexapro outpatient DVT prophylaxis, with Lovenox Subjective Date of service: 03/23/18 Principal diagnosis: paroxysmal atrial fibrillation with RVR Interval history: Patient seen and examined. Medical records and medication list reviewed. No acute event overnight noted by the RN. Patient denies any chest pain or difficulty breathing. Patient is tolerating diet. Discussed plan of care at bedside with patient. Objective - Exam Narrative Exam: GENERAL: well-developed morbidly obese white female lying on bed appeared to be in no discomfort. HEENT: Normocephalic. Atraumatic. No conjunctival congestion or icterus. Patient has moist mucous membranes. NECK: Supple. Trachea midline. CHEST/LUNGS: Clear to auscultated bilaterally, breathing nonlabored. No wheezes crackles or rhonchi. HEART/CARDIOVASCULAR: IrRegular in rate and rhythm. S1 and S2 positive. ABDOMEN: Abdomen is soft, left CVA tenderness on deep palpation. Patient has normal bowel sounds. SKIN: There is no rash. Warm and dry. NEURO: No focal motor deficit. Follows command. MUSCULOSKELETAL: No joint effusion or tenderness. EXTRIMITY: No edema, no cyanosis or clubbing. PSYCH: Cooperative. - Constitutional Vitals: Vital Signs - 12hr 03/23/18 03/23/18 03/23/18 05:14 07:17 10:00 Temperature 98.6 F 98.1 F Pulse Rate 68 80 Pulse Rate [ 84 From Monitor] Respiratory 16 20 18 Rate Blood Pressure 94/58 107/57 O2 Sat by Pulse 97 94 99 Oximetry - Labs CBC & Chem 7: 03/24/18 07:32 03/24/18 07:32 Labs: Abnormal lab results 03/23/18 03/23/18 Range/Units 04:34 04:34 WBC 21.0 H (4.5-11.0) K/mm3 Plt Count 138 L (140-440) K/mm3 Monocytes % (Manual) 12.0 H (0.0-7.3) % Seg Neutrophils # Man 9.5 H (1.8-7.7) K/mm3 Monocytes # (Manual) 2.5 H (0.0-0.8) K/mm3 Glucose 135 H (65-100) mg/dL Calcium 8.2 L (8.4-10.2) mg/dL
[2018-03-24] MEDS: MORPHINE IV PRN (01:40)
[2018-03-24] MEDS: ZOFRAN IV PRN (01:41)
[2018-03-24] MEDS: ceFAZolin 1 GM in NACL 0.9% 20 ML IV SCH ×3 (05:37→21:37)
[2018-03-24] MEDS: NORCO 5/325 PO PRN ×2 (05:38→21:38)
[2018-03-24 07:56] LABS: Hematocrit 32.4 % (30.3-42.9); Hemoglobin 11.1 gm/dl (10.1-14.3); Mean Corpuscular HGB Conc 34 % (30-34); Mean Corpuscular Hemoglobin 30 pg (28-32); Mean Corpuscular Volume 88 fl (79-97); Platelet Count 153 K/mm3 (140-440); Red Blood Count 3.68 M/mm3 (3.65-5.03); Red Cell Distribution Width 13.4 % (13.2-15.2)
[2018-03-24 08:09] LABS: BUN/Creatinine Ratio 14; Blood Urea Nitrogen 10 mg/dL (7-17); Calcium 7.9 mg/dL (8.4-10.2); Hemolysis Index 6
[2018-03-24] MEDS: SODIUM CHLORIDE FLUSH SYRINGE 10 ML IV SCH ×2 (09:29→21:38)
[2018-03-24] MEDS: BABY ASPIRIN PO SCH (09:30)
[2018-03-24] MEDS: LOPRESSOR PO SCH ×2 (09:30→21:40)
[2018-03-24] MEDS: CORDARONE PO SCH ×2 (09:30→21:40)
[2018-03-24] MEDS: LEXAPRO PO SCH (09:31)
[2018-03-24] MEDS: COLACE PO SCH ×2 (09:31→21:45)
[2018-03-24] MEDS: LOVENOX SUB-Q SCH (09:32)
[2018-03-24] MEDS: PEPCID PO SCH ×2 (09:32→21:38)
--- NOTE | 2018-03-24 09:43 | Operative Report ---
PREOPERATIVE DIAGNOSIS: Left ureteral stone, 6 mm. POSTOPERATIVE DIAGNOSES: 1. Left ureteral stone, 6 mm. 2. Pyonephrosis with elevated white count. PROCEDURE PERFORMED: Cystoscopy, bilateral retrograde pyelograms, left double-J stent placement. SURGEON: Candelario Snyder MD ANESTHESIA: General. ESTIMATED BLOOD LOSS: Minimal. FLUIDS: Crystalloid. COMPLICATIONS: No complications. INDICATIONS: This 62-year-old female presented in the ER with left flank pain for several weeks, a fever of 101. CT abdomen and pelvis confirmed a 6 mm mid ureteral stone with hydronephrosis. Due to the acute nature, we discussed the options. She agreed to proceed with endoscopic evaluation. DESCRIPTION OF PROCEDURE: The patient was taken to the operative suite, placed in a supine position. After adequate general anesthesia, prepped and draped in a sterile fashion. Pancystourethroscopy was performed with a 22-Samoan Storz cystoscope. Bladder, some mild erythema. Both ureteral orifices in normal position. Bilateral retrograde pyelograms were obtained with an 8 [place]an [place] catheter and 8 mL of contrast. No filling defects or obstruction on the right and left side obvious filling defect mid to distal ureter, consistent with a stone. A 0.035 Glidewire was placed, deshawn pus could be appreciated from the left ureter. At that point, I elected to not do an ureteroscopy. We put up a 6-Samoan 24 cm double-J stent with a short internal string. Urine culture was obtained. The patient tolerated the procedure well. Her bladder was drained. She was extubated and taken to recovery room. She will be admitted to the hospitalist service, Tatiana and Eladio on the chart for postoperative management. She will probably need ureteroscopy or lithotripsy in 1-2 weeks. JOB# [id number] [facility]
[2018-03-24] MEDS: TYLENOL PO PRN (11:15)
[2018-03-24] MEDS: D5NS 1,000 ML IV SCH (12:55)
--- NOTE | 2018-03-24 13:12 | Progress Note ---
Assessment and Plan Assessment: Paroxysmal atrial fibrillation with RVR --> SR; thyroid profile WNL Left hydronephrosis and left ureteric 6.8 mm stone s/p cysto, rpg, left stent placement 03/21/2018 per urology Sepsis, likely due to acute left pyelonephritis Hypokalemia - serum Mg WNL H/o HTN Plan: F/u echo. Cont PO amio and lopressor. Pt with current CHADS score of 2 and thus may benefit from intermediate project manager systemic AC in regards to atrial fibrillation. However, pt recently underwent urological procedure. Also, pt reports that she was told by urology that she may require additional cystoscopy with stent placement in the near future. Recommend heparin gtt at this time if okay with urology. D/w Dr. Ochoa. Assessment and plan reviewed with pt at bedside. The patient has been seen in conjunction with Dr. JOSH Rubin who agrees with the assessment and plan of care. Subjective Date of service: 03/24/18 Principal diagnosis: paroxysmal atrial fibrillation with RVR Interval history: Pt resting comfortably in bed, no current cardiac complaints. remains in SR. Objective Last Vital Signs Temp 98.4 F 03/24/18 04:55 Pulse 82 03/24/18 09:55 Resp 16 03/24/18 09:55 BP 100/56 03/24/18 04:55 Pulse Ox 99 03/24/18 09:55 - Physical Examination General: No Apparent Distress HEENT: Positive: PERRL, Normocephaly, Mucus Membranes Moist Neck: Positive: neck supple, trachea midline Cardiac: Positive: Reg Rate and Rhythm, S1/S2 Lungs: Positive: clear to auscultation Neuro: Positive: Grossly Intact Abdomen: Positive: Soft. Negative: Tender Skin: Negative: Rash Musculoskeletal: No Fluid Collection, No Pain, Normal Range of Motion Extremities: Absent: edema - Labs and Meds CBC 03/24/18 Range/Units 07:32 WBC 13.2 H (4.5-11.0) K/mm3 RBC 3.68 (3.65-5.03) M/mm3 Hgb 11.1 (10.1-14.3) gm/dl Hct 32.4 (30.3-42.9) % Plt Count 153 (140-440) K/mm3 Comprehensive Metabolic Panel 03/24/18 Range/Units 07:32 Sodium 140 (137-145) mmol/L Potassium 3.5 L (3.6-5.0) mmol/L Chloride 101.9 (98-107) mmol/L Carbon Dioxide 30 (22-30) mmol/L BUN 10 (7-17) mg/dL Creatinine 0.7 (0.7-1.2) mg/dL Glucose 104 H (65-100) mg/dL Calcium 7.9 L (8.4-10.2) mg/dL - Imaging and Cardiology EKG: report reviewed, image reviewed Echo: report reviewed (08/2016 showed EF 55-60%, trace MR, tract TR, pseudonormalization pattern. )
--- NOTE | 2018-03-24 18:41 | Progress Note ---
Assessment and Plan Sepsis, likely due to acute left pyelonephritis - cont with cefazolin - gm -ve rods on urine culture and blood culture negative - Continue sepsis protocol, trend lactic acid Left hydronephrosis with left ureteric stone - Consulted Dr. Snyder, s/p cystoscopy with RPG and left stent placement on Hypertension, stable now - will continue to monitor Paroxysmal Atrial fibrillation, with RVR - Patient takes metoprolol tartrate 25 twice a day for rate control - Not on any anticoagulation at home - was NSR on admission but now converted to atfib since 03/22 - consulted cardiology, transferred to [facility] - placed on amioderone drip and initiate PO amio 200mg BID, started on heparin drip for anticoagulation transition to po eliquis - F/u echo. Cont lopressor as tolerated Morbid obesity, dietary recommendation when clinically stable History of migraine, takes Lexapro outpatient DVT prophylaxis, with Lovenox Subjective Date of service: 03/24/18 Principal diagnosis: paroxysmal atrial fibrillation with RVR Interval history: Patient seen and examined. Medical records and medication list reviewed. No acute event overnight noted by the RN. Patient denies any chest pain or difficulty breathing. Patient is tolerating diet. Discussed plan of care at bedside with patient. Objective - Constitutional Vitals: Vital Signs - 12hr 03/24/18 03/24/18 03/24/18 06:52 09:55 10:00 Pulse Rate 60 Pulse Rate [ 82 From Monitor] Respiratory 16 Rate O2 Sat by Pulse 99 97 Oximetry - Labs CBC & Chem 7: 03/24/18 07:32 03/24/18 07:32 Labs: Abnormal lab results 03/24/18 03/24/18 Range/Units 07:32 07:32 WBC 13.2 H (4.5-11.0) K/mm3 Potassium 3.5 L (3.6-5.0) mmol/L Glucose 104 H (65-100) mg/dL Calcium 7.9 L (8.4-10.2) mg/dL
[2018-03-24] MEDS: ELIQUIS PO SCH (21:41)
[2018-03-25] MEDS ORDERED: K-DUR PO ONE (03:17)
[2018-03-25] MEDS: NORCO 5/325 PO PRN ×2 (04:57→21:51)
[2018-03-25] MEDS: D5NS 1,000 ML IV SCH ×2 (05:00→17:43)
[2018-03-25] MEDS ORDERED: ZOSYN/NS 3.375GM/50ML 3.375 GM/50 ML BAG IV SCH (06:00)
[2018-03-25 08:12] LABS: Hematocrit 32.3 % (30.3-42.9); Hemoglobin 10.7 gm/dl (10.1-14.3)
--- NOTE | 2018-03-25 09:31 | Consultation ---
History of Present Illness - Reason for Consult Consult date: 03/25/18 UTI Requesting physician: MORGAN SILVA - History of Present Illness HPI: 62-year-old F PMH hypertension and distant episode of atrial fibrillation who presented to the ER 03/20 c/o left flank pain radiated to the left lower quadrant and groin area. Pt actually had the pain for few weeks, but got worse 2 days prior to presentation to the ER. She also had F/C, vomiting, dysuria and urinary frequency. Pt had recently seen her PCP who prescribed levofloxacin for E coli UTI. She took it for about 4 days and then got changed to doxycyline for about 10 days. Her symptoms initially improved after starting antibiotics but since 03/18 left flank pain got worse, followed by fever and chills. Therefore she came to the ER for evaluation. In the ER temperature was 100.0, pulse 97, respiratory rate 18, saturation 90%, blood pressure 123/79. WBC was 22.8, H&H 14.8 and 44.3, platelets 204. BUN and creatinine 11 and 0.9. Urinalysis showed negative nitrates, moderate leukocyte esterase, RBC 20, WBC > 182. Patient underwent a CT of the abdomen and pelvis on admission that showed moderate left sided hydronephrosis secondary to a partially obstructing 6.3 mm stone in the distal ureter. She was evaluated by urology and underwent cystoscopy and Left ureteral stent placement on 03/21. She was given ceftriaxone in the emergency room and then was begun on cefazolin. Urine culture came positive for Citrobacter freundii. Antibiotic was changed to Zosyn on 03/25. Infectious disease is consulted today to help with further antibiotic management. Microbiology: Blood cultures: 03/21 NGTD Urine cultures: 03/21 Citrobacter freundii. Current Antimicrobials: Zosyn 03/25- Previous Antimicrobials: Cefazolin 03/21-03/24 Ceftriaxone 03/21 Past History Past Medical History: atrial fib, hypertension Medications and Allergies Allergies Allergy/AdvReac Type Severity Reaction Status Date / Time No Known Allergies Allergy Verified 03/21/18 04:50 Home Medications Medication Instructions Recorded Confirmed Last Taken Type Aspirin [Aspirin BABY CHEW TAB] 81 mg PO QDAY 03/22/18 03/22/18 Unknown History Escitalopram Oxalate [Lexapro] 20 mg PO DAILY 03/22/18 03/22/18 Unknown History Metoprolol [Lopressor] 25 mg PO BID 03/22/18 03/22/18 Unknown History Active Meds: Active Medications Acetaminophen (Tylenol) 650 mg PO Q4H PRN PRN Reason: Pain MILD(1-3)/Fever >100.5/SHAW Last Admin: 03/24/18 11:15 Dose: 650 mg Acetaminophen/Butalbital/Caffeine (Fioricet) 1 tab PO Q4H PRN PRN Reason: Headache Acetaminophen/Hydrocodone Bitart ([place] 5/325) 2 each PO Q6H PRN PRN Reason: Pain, Moderate (4-6) Last Admin: 03/25/18 04:57 Dose: 2 each Amiodarone HCl (Cordarone) 200 mg PO BID [facility] Last Admin: 03/24/18 21:40 Dose: 200 mg Apixaban (Eliquis) 5 mg PO Q12HR [facility]; Protocol Last Admin: 03/24/18 21:41 Dose: 5 mg Aspirin (Baby Aspirin) 81 mg PO QDAY [facility] Last Admin: 03/24/18 09:30 Dose: 81 mg Benzocaine/Menthol (Cepacol X Strength) 1 each MM Q2HR PRN PRN Reason: Sore Throat Docusate Sodium (Colace) 100 mg PO BID [facility] Last Admin: 03/24/18 21:45 Dose: Not Given Escitalopram Oxalate (Lexapro) 20 mg PO QDAY [facility] Last Admin: 03/24/18 09:31 Dose: 20 mg Famotidine (Pepcid) 10 mg PO BID [facility] Last Admin: 03/24/18 21:38 Dose: 10 mg Dextrose/Sodium Chloride (D5ns) 1,000 mls @ 75 mls/hr IV DIRECT [facility] Last Admin: 03/25/18 05:00 Dose: 75 mls/hr Piperacillin Sod/Tazobactam Sod (Zosyn/Ns 3.375gm/50ml) 3.375 gm in 50 mls @ 100 mls/hr IV Q8HR [facility]; Protocol Last Admin: 03/25/18 05:45 Dose: 100 mls/hr Metoprolol Tartrate (Lopressor) 25 mg PO BID [facility] Last Admin: 03/24/18 21:40 Dose: 25 mg Morphine Sulfate (Morphine) 2 mg IV Q4H PRN PRN Reason: Pain, Moderate (4-6) Last Admin: 03/24/18 01:40 Dose: 2 mg Naloxone HCl (Narcan 0.4 Mg/1 Ml) 0.1 mg IV Q2MIN PRN PRN Reason: Res Rate </= 8 or 02 SAT < 92% Ondansetron HCl (Zofran) 4 mg IV Q8H PRN PRN Reason: Nausea And Vomiting Last Admin: 03/24/18 01:41 Dose: 4 mg Sodium Chloride (Sodium Chloride Flush Syringe 10 Ml) 10 ml IV PRN PRN PRN Reason: LINE FLUSH Last Admin: 03/23/18 06:59 Dose: 10 ml Sodium Chloride (Sodium Chloride Flush Syringe 10 Ml) 10 ml IV BID [facility] Last Admin: 03/24/18 21:38 Dose: 10 ml Review of Systems Constitutional: other (as per HPI.) Physical Examination - Physical Exam Narrative exam: General appearance: Alert in NAD, conversant Eyes: anicteric sclerae, moist conjunctivae; PERRLA HENT: Atraumatic; oropharynx clear with moist mucous membranes and no mucosal ulcerations/no oral thrush; normal hard and soft palate. Normal external ears. Neck: Trachea midline; supple, no thyromegaly or lymphadenopathy Lungs: CTA, with normal respiratory effort and no intercostal retractions CV: S1,S2. Abdomen: +BS. Soft. Mild diffuse tenderness. Left CVA tenderness. Extremities: No c/c/e. Skin: Normal temperature, turgor and texture; no rash, ulcers or subcutaneous nodules Psych: Appropriate affect, alert and oriented to person, place and time. Neuro: alert and oriented x 3. No focal deficits. Lines: PIV. - Constitutional Vitals: Vital Signs Temp Pulse Resp BP Pulse Ox 98.0 F 64 20 127/70 96 03/25/18 07:41 03/25/18 07:41 03/25/18 07:41 03/25/18 07:41 03/25/18 07:41 Temperature -Last 24 Hours Temperature 98.0 F Temperature 98.8 F Temperature 99.0 F Temperature 99.1 F Temperature 98.0 F Temperature 97.9 F Results - Labs CBC & Chem 7: 03/25/18 05:40 03/24/18 07:32 Assessment and Plan Assessment: 1) Sepsis: Present on admission, manifested by fever, tachycardia, leukocytosis. Due to Left pyelonephritis and hydropnephrosis. 2) Citrobacter freundii Left pyelonephritis. 3) Left hydronephrosis secondary to partially obstructed stone in the distal ureter. - s/p cystoscopy, retrograde pyelogram and left ureteral stent placement on 03/21 4) Acute fever. Resolved. 5) Acute Leukocytosis. Improved 6) Paroxysmal A. fib with RVR. Plan: -Stop zosyn. -Start meropenem. -Monitor CBC. -Will need meropenem for discharge for 7 days. Thank you for your consultation, will follow up with you. Stefani Anderson MD Infectious Diseases Specialist [facility] ([facility]) m [phone]
[2018-03-25] MEDS: LEXAPRO PO SCH (09:57)
[2018-03-25] MEDS: PEPCID PO SCH ×2 (09:57→21:53)
[2018-03-25] MEDS: ELIQUIS PO SCH ×2 (09:57→21:52)
[2018-03-25] MEDS: COLACE PO SCH ×2 (09:58→21:53)
[2018-03-25] MEDS: CORDARONE PO SCH ×2 (09:58→21:52)
[2018-03-25] MEDS: LOPRESSOR PO SCH ×2 (09:58→21:49)
[2018-03-25] MEDS: BABY ASPIRIN PO SCH (09:58)
[2018-03-25] MEDS: SODIUM CHLORIDE FLUSH SYRINGE 10 ML IV SCH (09:59)
--- NOTE | 2018-03-25 11:15 | Progress Note ---
Assessment and Plan afib now nsr htn obesity sepsis secondary to pelyo rec: cont amio and lopressor and elquis Subjective Date of service: 03/25/18 Principal diagnosis: paroxysmal atrial fibrillation with RVR Interval history: pt has no palpations Objective Vital Signs Temp Pulse Resp BP Pulse Ox 03/25/18 07:41 98.0 F 64 20 127/70 96 03/25/18 05:03 98.8 F 67 18 129/75 98 03/25/18 04:57 20 03/25/18 01:14 72 03/25/18 00:07 99.0 F 63 18 106/63 94 03/24/18 22:00 96 03/24/18 21:40 77 120/61 03/24/18 19:41 99.1 F 18 120/61 03/24/18 16:52 98.0 F 66 18 82/39 97 03/24/18 11:21 97.9 F 67 16 100/62 96 - Physical Examination General: No Apparent Distress HEENT: Positive: PERRL, Normocephaly, Mucus Membranes Moist Neck: Positive: neck supple, trachea midline Cardiac: Positive: Reg Rate and Rhythm Lungs: Positive: clear to auscultation Neuro: Positive: Grossly Intact Abdomen: Positive: Soft. Negative: Tender Skin: Negative: Rash Musculoskeletal: No Fluid Collection, No Pain, Normal Range of Motion Extremities: Absent: edema - Labs and Meds CBC 03/25/18 Range/Units 05:40 Hgb 10.7 (10.1-14.3) gm/dl Hct 32.3 (30.3-42.9) % - Imaging and Cardiology EKG: report reviewed, image reviewed Echo: report reviewed (08/2016 showed EF 55-60%, trace MR, tract TR, pseudonormalization pattern. ) - Telemetry EKG Rhythm: Sinus Rhythm
--- NOTE | 2018-03-25 11:35 | Progress Note ---
Assessment and Plan Assessment and plan: --Sepsis, likely due to acute left pyelonephritis Continue current antibiotics, follow cultures, patient is already on sepsis protocol Urine positive for Gram-negative rods, ID following --Left hydronephrosis with left ureteric stone Consulted Dr. Snyder, s/p cystoscopy with RPG and left stent placement on 03/21 --Hypertension: Heart rate control continue current antihypertensives and when necessary medications Paroxysmal --Atrial fibrillation, with RVR; now rate controlled continue beta blockers Not on anticoagulation at home, started Eliquis s/p amiodarone drip, now on po amiodarone 200 twice a day cardiology following --Morbid obesity, BMI 37.4; dietary modification and exercise, reduction when medically stable --History of migraine, takes Lexapro outpatient --DVT prophylaxis, Pt is on Eliquis History Interval history: Patient seen and examined medical records reviewed No new events reported by the nursing staff Alert awake oriented Vital signs reviewed Hospitalist Physical - Constitutional Vitals: Temp Pulse Resp BP Pulse Ox 98.0 F 64 20 127/70 96 03/25/18 07:41 03/25/18 07:41 03/25/18 07:41 03/25/18 07:41 03/25/18 07:41 General appearance: Present: no acute distress, well-nourished - EENT Eyes: Present: PERRL, EOM intact - Neck Neck: Present: supple, normal ROM - Respiratory Respiratory effort: normal Respiratory: negative: rales, rhonchi, wheezing - Cardiovascular Rhythm: regular Heart Sounds: Present: S1 & S2 - Extremities Extremities: no ischemia, No edema Peripheral Pulses: within normal limits - Abdominal General gastrointestinal: soft, non-tender, non-distended, normal bowel sounds - Integumentary Integumentary: Present: clear, warm - Psychiatric Psychiatric: appropriate mood/affect, cooperative - Neurologic Neurologic: CNII-XII intact, moves all extremities Results - Labs CBC & Chem 7: 03/25/18 05:40 03/24/18 07:32 Labs: Laboratory Last Values WBC 13.2 K/mm3 (4.5-11.0) H 03/24/18 07:32 RBC 3.68 M/mm3 (3.65-5.03) 03/24/18 07:32 Hgb 10.7 gm/dl (10.1-14.3) 03/25/18 05:40 Hct 32.3 % (30.3-42.9) 03/25/18 05:40 MCV 88 fl (79-97) 03/24/18 07:32 MCH 30 pg (28-32) 03/24/18 07:32 MCHC 34 % (30-34) 03/24/18 07:32 RDW 13.4 % (13.2-15.2) 03/24/18 07:32 Plt Count 153 K/mm3 (140-440) 03/24/18 07:32 Add Manual Diff Complete 03/23/18 04:34 Total Counted 100 03/23/18 04:34 Seg Neuts % (Manual) 45.0 % (40.0-70.0) 03/23/18 04:34 Band Neutrophils % 23.0 % 03/23/18 04:34 Lymphocytes % (Manual) 14.0 % (13.4-35.0) 03/23/18 04:34 Reactive Lymphs % (Man) 0 % 03/23/18 04:34 Monocytes % (Manual) 12.0 % (0.0-7.3) H 03/23/18 04:34 Eosinophils % (Manual) 0 % (0.0-4.3) 03/23/18 04:34 Basophils % (Manual) 0 % (0.0-1.8) 03/23/18 04:34 Metamyelocytes % 6.0 % 03/23/18 04:34 Myelocytes % 0 % 03/23/18 04:34 Promyelocytes % 0 % 03/23/18 04:34 Blast Cells % 0 % 03/23/18 04:34 Nucleated RBC % Not Reportable 03/23/18 04:34 Seg Neutrophils # Man 9.5 K/mm3 (1.8-7.7) H 03/23/18 04:34 Band Neutrophils # 4.8 K/mm3 03/23/18 04:34 Lymphocytes # (Manual) 2.9 K/mm3 (1.2-5.4) 03/23/18 04:34 Abs React Lymphs (Man) 0.0 K/mm3 03/23/18 04:34 Monocytes # (Manual) 2.5 K/mm3 (0.0-0.8) H 03/23/18 04:34 Eosinophils # (Manual) 0.0 K/mm3 (0.0-0.4) 03/23/18 04:34 Basophils # (Manual) 0.0 K/mm3 (0.0-0.1) 03/23/18 04:34 Metamyelocytes # 1.3 K/mm3 03/23/18 04:34 Myelocytes # 0.0 K/mm3 03/23/18 04:34 Promyelocytes # 0.0 K/mm3 03/23/18 04:34 Blast Cells # 0.0 K/mm3 03/23/18 04:34 WBC Morphology Not Reportable 03/23/18 04:34 Hypersegmented Neuts Not Reportable 03/23/18 04:34 Hyposegmented Neuts Not Reportable 03/23/18 04:34 Hypogranular Neuts Not Reportable 03/23/18 04:34 Smudge Cells Not Reportable 03/23/18 04:34 Toxic Granulation Not Reportable 03/23/18 04:34 Toxic Vacuolation Not Reportable 03/23/18 04:34 Dohle Bodies Not Reportable 03/23/18 04:34 Pelger-Huet Anomaly Not Reportable 03/23/18 04:34 Negar Rods Not Reportable 03/23/18 04:34 Platelet Estimate Consistent w auto 03/23/18 04:34 Clumped Platelets Not Reportable 03/23/18 04:34 Plt Clumps, EDTA Not Reportable 03/23/18 04:34 Large Platelets Not Reportable 03/23/18 04:34 Giant Platelets Not Reportable 03/23/18 04:34 Platelet Satelliting Not Reportable 03/23/18 04:34 Plt Morphology Comment Not Reportable 03/23/18 04:34 RBC Morphology Not Reportable 03/23/18 04:34 Dimorphic RBCs Not Reportable 03/23/18 04:34 Polychromasia Not Reportable 03/23/18 04:34 Hypochromasia Not Reportable 03/23/18 04:34 Poikilocytosis Not Reportable 03/23/18 04:34 Anisocytosis 1+ 03/23/18 04:34 Microcytosis Not Reportable 03/23/18 04:34 Macrocytosis Not Reportable 03/23/18 04:34 Spherocytes Not Reportable 03/23/18 04:34 Pappenheimer Bodies Not Reportable 03/23/18 04:34 Sickle Cells Not Reportable 03/23/18 04:34 Target Cells Not Reportable 03/23/18 04:34 Tear Drop Cells Not Reportable 03/23/18 04:34 Ovalocytes Not Reportable 03/23/18 04:34 Helmet Cells Not Reportable 03/23/18 04:34 [place] Bodies Not Reportable 03/23/18 04:34 [place] Rings Not Reportable 03/23/18 04:34 [place] Cells Not Reportable 03/23/18 04:34 Bite Cells Not Reportable 03/23/18 04:34 Crenated Cell Not Reportable 03/23/18 04:34 Elliptocytes Not Reportable 03/23/18 04:34 Acanthocytes (Spur) Not Reportable 03/23/18 04:34 Rouleaux Not Reportable 03/23/18 04:34 Hemoglobin C Crystals Not Reportable 03/23/18 04:34 Schistocytes Not Reportable 03/23/18 04:34 Malaria parasites Not Reportable 03/23/18 04:34 Colin Bodies Not Reportable 03/23/18 04:34 Hem Pathologist Commnt No 03/23/18 04:34 APTT 30.9 Sec. (24.2-36.6) 03/21/18 06:26 Heparin Anti-Xa Level 0.54 U.I./ml (0.3-0.7) 03/22/18 20:39 Sodium 140 mmol/L (137-145) 03/24/18 07:32 Potassium 3.5 mmol/L (3.6-5.0) L 03/24/18 07:32 Chloride 101.9 mmol/L (98-107) 03/24/18 07:32 Carbon Dioxide 30 mmol/L (22-30) 03/24/18 07:32 Anion Gap 12 mmol/L 03/24/18 07:32 BUN 10 mg/dL (7-17) 03/24/18 07:32 Creatinine 0.7 mg/dL (0.7-1.2) 03/24/18 07:32 Estimated GFR > 60 ml/min 03/24/18 07:32 BUN/Creatinine Ratio 14 % 03/24/18 07:32 Glucose 104 mg/dL (65-100) H 03/24/18 07:32 Calcium 7.9 mg/dL (8.4-10.2) L 03/24/18 07:32 Magnesium 1.90 mg/dL (1.7-2.3) 03/22/18 14:02 Total Bilirubin 0.80 mg/dL (0.1-1.2) 03/21/18 00:35 AST 14 units/L (5-40) 03/21/18 00:35 ALT 14 units/L (7-56) 03/21/18 00:35 Alkaline Phosphatase 78 units/L (35-129) 03/21/18 00:35 Total Protein 7.8 g/dL (6.3-8.2) 03/21/18 00:35 Albumin 4.3 g/dL (3.9-5) 03/21/18 00:35 Albumin/Globulin Ratio 1.2 % 03/21/18 00:35 Lipase 17 units/L (13-60) 03/21/18 00:35 TSH 1.250 mlU/mL (0.270-4.200) 03/22/18 14:02 Free T4 1.37 ng/dL (0.76-1.46) 03/22/18 14:02 Urine Color [place] (Yellow) 03/20/18 Unknown Urine Turbidity Cloudy (Clear) 03/20/18 Unknown Urine pH 5.0 (5.0-7.0) 03/20/18 Unknown Ur Specific [place] 1.020 (1.003-1.030) 03/20/18 Unknown Urine Protein 30 mg/dl mg/dL (Negative) 03/20/18 Unknown Urine Glucose (UA) Neg mg/dL (Negative) 03/20/18 Unknown Urine Ketones 20 mg/dL (Negative) 03/20/18 Unknown Urine Blood Lg (Negative) 03/20/18 Unknown Urine Nitrite Neg (Negative) 03/20/18 Unknown Urine Bilirubin Neg (Negative) 03/20/18 Unknown Urine Urobilinogen 2.0 mg/dL (<2.0) 03/20/18 Unknown Ur Leukocyte Esterase Mod (Negative) 03/20/18 Unknown Urine WBC (Auto) > 182.0 /HPF (0.0-6.0) H 03/20/18 Unknown Urine RBC (Auto) 20.0 /HPF (0.0-6.0) 03/20/18 Unknown U Epithel Cells (Auto) 3.0 /HPF (0-13.0) 03/20/18 Unknown Urine Bacteria (Auto) 3+ /HPF (Negative) 03/20/18 Unknown Hyaline Casts 75 /LPF 03/20/18 Unknown Urine Mucus 3+ /HPF 03/20/18 Unknown
[2018-03-25] MEDS: MERREM/NS 500 MG/50 ML 500 MG/50 ML BAG IV SCH ×3 (14:52→23:50)
[2018-03-26] MEDS: SODIUM CHLORIDE FLUSH SYRINGE 10 ML IV SCH ×3 (03:10→22:26)
[2018-03-26] MEDS: NORCO 5/325 PO PRN ×2 (05:22→12:58)
[2018-03-26] MEDS: MERREM/NS 500 MG/50 ML 500 MG/50 ML BAG IV SCH ×2 (05:49→12:28)
[2018-03-26] MEDS: D5NS 1,000 ML IV SCH ×2 (05:49→22:24)
[2018-03-26 07:21] LABS: Basophils % (Auto) 0.4 % (0.0-1.8); Eosinophils # (Auto) 0.3 K/mm3 (0.0-0.4); Hematocrit 33.9 % (30.3-42.9); Hemoglobin 11.2 gm/dl (10.1-14.3); Lymphocytes # (Auto) 1.7 K/mm3 (1.2-5.4); Lymphocytes % (Auto) 16.5 % (13.4-35.0); Mean Corpuscular HGB Conc 33 % (30-34); Mean Corpuscular Hemoglobin 30 pg (28-32); Mean Corpuscular Volume 89 fl (79-97); Monocytes # (Auto) 1.3 K/mm3 (0.0-0.8); Monocytes % (Auto) 12.4 % (0.0-7.3); Platelet Count 245 K/mm3 (140-440); Red Cell Distribution Width 13.4 % (13.2-15.2)
[2018-03-26 07:41] LABS: BUN/Creatinine Ratio 8; Blood Urea Nitrogen 4 mg/dL (7-17); Hemolysis Index 3
--- NOTE | 2018-03-26 08:37 | Progress Note ---
Assessment and Plan Assessment and plan: --Hypokalemia; replace per protocol and monitor levels Check magnesium --Sepsis, gram-negative rods ID changed antibiotic to meropenem patient is already on sepsis protocol --Left hydronephrosis with left ureteric stone Evaluated by Dr. Snyder, s/p cystoscopy with RPG and left stent placement on 03/21 --Hypertension: Moderate control continue current antihypertensives and when necessary medications Paroxysmal --Atrial fibrillation, with RVR; now rate controlled continue beta blockers Cardiology reduced amiodarone dose to 200 mg daily, continue Eliquis --Morbid obesity, BMI 37.4; dietary modification and exercise, weight reduction when medically stable --History of migraine, takes Lexapro outpatient --DVT prophylaxis, Pt is on Eliquis DC planning. Case management Plan of care reviewed with the patient and her nurse History Interval history: Patient seen and examined medical records reviewed No new events reported by the nursing staff Alert awake oriented 3 Vital signs reviewed Hospitalist Physical - Constitutional Vitals: Temp Pulse Resp BP Pulse Ox 98.7 F 60 20 112/65 94 03/26/18 05:06 03/26/18 06:04 03/26/18 05:22 03/26/18 05:06 03/26/18 05:06 General appearance: Present: no acute distress, well-nourished - EENT Eyes: Present: PERRL, EOM intact - Neck Neck: Present: supple, normal ROM - Respiratory Respiratory effort: normal Respiratory: bilateral: diminished, negative: rales, rhonchi, wheezing - Cardiovascular Rhythm: regular Heart Sounds: Present: S1 & S2 - Extremities Extremities: no ischemia, No edema - Abdominal General gastrointestinal: soft, non-tender, non-distended, normal bowel sounds - Integumentary Integumentary: Present: clear, warm - Psychiatric Psychiatric: appropriate mood/affect, cooperative - Neurologic Neurologic: CNII-XII intact, moves all extremities Results - Labs CBC & Chem 7: 03/26/18 06:25 03/26/18 06:25 Labs: Laboratory Last Values WBC 10.2 K/mm3 (4.5-11.0) 03/26/18 06:25 RBC 3.80 M/mm3 (3.65-5.03) 03/26/18 06:25 Hgb 11.2 gm/dl (10.1-14.3) 03/26/18 06:25 Hct 33.9 % (30.3-42.9) 03/26/18 06:25 MCV 89 fl (79-97) 03/26/18 06:25 MCH 30 pg (28-32) 03/26/18 06:25 MCHC 33 % (30-34) 03/26/18 06:25 RDW 13.4 % (13.2-15.2) 03/26/18 06:25 Plt Count 245 K/mm3 (140-440) 03/26/18 06:25 Lymph % (Auto) 16.5 % (13.4-35.0) 03/26/18 06:25 [place] % (Auto) 12.4 % (0.0-7.3) H 03/26/18 06:25 Eos % (Auto) 3.0 % (0.0-4.3) 03/26/18 06:25 Baso % (Auto) 0.4 % (0.0-1.8) 03/26/18 06:25 Lymph # 1.7 K/mm3 (1.2-5.4) 03/26/18 06:25 [place] # 1.3 K/mm3 (0.0-0.8) H 03/26/18 06:25 Eos # 0.3 K/mm3 (0.0-0.4) 03/26/18 06:25 Baso # 0.0 K/mm3 (0.0-0.1) 03/26/18 06:25 Add Manual Diff Complete 03/23/18 04:34 Total Counted 100 03/23/18 04:34 Seg Neutrophils % 67.7 % (40.0-70.0) 03/26/18 06:25 Seg Neuts % (Manual) 45.0 % (40.0-70.0) 03/23/18 04:34 Band Neutrophils % 23.0 % 03/23/18 04:34 Lymphocytes % (Manual) 14.0 % (13.4-35.0) 03/23/18 04:34 Reactive Lymphs % (Man) 0 % 03/23/18 04:34 Monocytes % (Manual) 12.0 % (0.0-7.3) H 03/23/18 04:34 Eosinophils % (Manual) 0 % (0.0-4.3) 03/23/18 04:34 Basophils % (Manual) 0 % (0.0-1.8) 03/23/18 04:34 Metamyelocytes % 6.0 % 03/23/18 04:34 Myelocytes % 0 % 03/23/18 04:34 Promyelocytes % 0 % 03/23/18 04:34 Blast Cells % 0 % 03/23/18 04:34 Nucleated RBC % Not Reportable 03/23/18 04:34 Seg Neutrophils # 6.9 K/mm3 (1.8-7.7) 03/26/18 06:25 Seg Neutrophils # Man 9.5 K/mm3 (1.8-7.7) H 03/23/18 04:34 Band Neutrophils # 4.8 K/mm3 03/23/18 04:34 Lymphocytes # (Manual) 2.9 K/mm3 (1.2-5.4) 03/23/18 04:34 Abs React Lymphs (Man) 0.0 K/mm3 03/23/18 04:34 Monocytes # (Manual) 2.5 K/mm3 (0.0-0.8) H 03/23/18 04:34 Eosinophils # (Manual) 0.0 K/mm3 (0.0-0.4) 03/23/18 04:34 Basophils # (Manual) 0.0 K/mm3 (0.0-0.1) 03/23/18 04:34 Metamyelocytes # 1.3 K/mm3 03/23/18 04:34 Myelocytes # 0.0 K/mm3 03/23/18 04:34 Promyelocytes # 0.0 K/mm3 03/23/18 04:34 Blast Cells # 0.0 K/mm3 03/23/18 04:34 WBC Morphology Not Reportable 03/23/18 04:34 Hypersegmented Neuts Not Reportable 03/23/18 04:34 Hyposegmented Neuts Not Reportable 03/23/18 04:34 Hypogranular Neuts Not Reportable 03/23/18 04:34 Smudge Cells Not Reportable 03/23/18 04:34 Toxic Granulation Not Reportable 03/23/18 04:34 Toxic Vacuolation Not Reportable 03/23/18 04:34 Dohle Bodies Not Reportable 03/23/18 04:34 Pelger-Huet Anomaly Not Reportable 03/23/18 04:34 Negar Rods Not Reportable 03/23/18 04:34 Platelet Estimate Consistent w auto 03/23/18 04:34 Clumped Platelets Not Reportable 03/23/18 04:34 Plt Clumps, EDTA Not Reportable 03/23/18 04:34 Large Platelets Not Reportable 03/23/18 04:34 Giant Platelets Not Reportable 03/23/18 04:34 Platelet Satelliting Not Reportable 03/23/18 04:34 Plt Morphology Comment Not Reportable 03/23/18 04:34 RBC Morphology Not Reportable 03/23/18 04:34 Dimorphic RBCs Not Reportable 03/23/18 04:34 Polychromasia Not Reportable 03/23/18 04:34 Hypochromasia Not Reportable 03/23/18 04:34 Poikilocytosis Not Reportable 03/23/18 04:34 Anisocytosis 1+ 03/23/18 04:34 Microcytosis Not Reportable 03/23/18 04:34 Macrocytosis Not Reportable 03/23/18 04:34 Spherocytes Not Reportable 03/23/18 04:34 Pappenheimer Bodies Not Reportable 03/23/18 04:34 Sickle Cells Not Reportable 03/23/18 04:34 Target Cells Not Reportable 03/23/18 04:34 Tear Drop Cells Not Reportable 03/23/18 04:34 Ovalocytes Not Reportable 03/23/18 04:34 Helmet Cells Not Reportable 03/23/18 04:34 [place] Bodies Not Reportable 03/23/18 04:34 [place] Rings Not Reportable 03/23/18 04:34 [place] Cells Not Reportable 03/23/18 04:34 Bite Cells Not Reportable 03/23/18 04:34 Crenated Cell Not Reportable 03/23/18 04:34 Elliptocytes Not Reportable 03/23/18 04:34 Acanthocytes (Spur) Not Reportable 03/23/18 04:34 Rouleaux Not Reportable 03/23/18 04:34 Hemoglobin C Crystals Not Reportable 03/23/18 04:34 Schistocytes Not Reportable 03/23/18 04:34 Malaria parasites Not Reportable 03/23/18 04:34 Colin Bodies Not Reportable 03/23/18 04:34 Hem Pathologist Commnt No 03/23/18 04:34 APTT 30.9 Sec. (24.2-36.6) 03/21/18 06:26 Heparin Anti-Xa Level 0.54 U.I./ml (0.3-0.7) 03/22/18 20:39 Sodium 144 mmol/L (137-145) 03/26/18 06:25 Potassium 3.1 mmol/L (3.6-5.0) L 03/26/18 06:25 Chloride 103.5 mmol/L (98-107) 03/26/18 06:25 Carbon Dioxide 30 mmol/L (22-30) 03/26/18 06:25 Anion Gap 14 mmol/L 03/26/18 06:25 BUN 4 mg/dL (7-17) L 03/26/18 06:25 Creatinine 0.5 mg/dL (0.7-1.2) L 03/26/18 06:25 Estimated GFR > 60 ml/min 03/26/18 06:25 BUN/Creatinine Ratio 8 % 03/26/18 06:25 Glucose 88 mg/dL (65-100) 03/26/18 06:25 Calcium 8.0 mg/dL (8.4-10.2) L 03/26/18 06:25 Magnesium 1.90 mg/dL (1.7-2.3) 03/22/18 14:02 Total Bilirubin 0.80 mg/dL (0.1-1.2) 03/21/18 00:35 AST 14 units/L (5-40) 03/21/18 00:35 ALT 14 units/L (7-56) 03/21/18 00:35 Alkaline Phosphatase 78 units/L (35-129) 03/21/18 00:35 Total Protein 7.8 g/dL (6.3-8.2) 03/21/18 00:35 Albumin 4.3 g/dL (3.9-5) 03/21/18 00:35 Albumin/Globulin Ratio 1.2 % 03/21/18 00:35 Lipase 17 units/L (13-60) 03/21/18 00:35 TSH 1.250 mlU/mL (0.270-4.200) 03/22/18 14:02 Free T4 1.37 ng/dL (0.76-1.46) 03/22/18 14:02 Urine Color [place] (Yellow) 03/20/18 Unknown Urine Turbidity Cloudy (Clear) 03/20/18 Unknown Urine pH 5.0 (5.0-7.0) 03/20/18 Unknown Ur Specific [place] 1.020 (1.003-1.030) 03/20/18 Unknown Urine Protein 30 mg/dl mg/dL (Negative) 03/20/18 Unknown Urine Glucose (UA) Neg mg/dL (Negative) 03/20/18 Unknown Urine Ketones 20 mg/dL (Negative) 03/20/18 Unknown Urine Blood Lg (Negative) 03/20/18 Unknown Urine Nitrite Neg (Negative) 03/20/18 Unknown Urine Bilirubin Neg (Negative) 03/20/18 Unknown Urine Urobilinogen 2.0 mg/dL (<2.0) 03/20/18 Unknown Ur Leukocyte Esterase Mod (Negative) 03/20/18 Unknown Urine WBC (Auto) > 182.0 /HPF (0.0-6.0) H 03/20/18 Unknown Urine RBC (Auto) 20.0 /HPF (0.0-6.0) 03/20/18 Unknown U Epithel Cells (Auto) 3.0 /HPF (0-13.0) 03/20/18 Unknown Urine Bacteria (Auto) 3+ /HPF (Negative) 03/20/18 Unknown Hyaline Casts 75 /LPF 03/20/18 Unknown Urine Mucus 3+ /HPF 03/20/18 Unknown
[2018-03-26] MEDS ORDERED: K-DUR PO ONE (08:40)
[2018-03-26] MEDS: PEPCID PO SCH ×2 (09:36→22:26)
[2018-03-26] MEDS: LEXAPRO PO SCH (09:36)
[2018-03-26] MEDS: BABY ASPIRIN PO SCH (09:36)
[2018-03-26] MEDS: ELIQUIS PO SCH ×2 (09:37→22:26)
[2018-03-26] MEDS: CORDARONE PO SCH (09:37)
[2018-03-26] MEDS: LOPRESSOR PO SCH ×2 (09:37→22:26)
--- NOTE | 2018-03-26 10:27 | Progress Note ---
Assessment and Plan afib now nsr htn obesity sepsis secondary to pelyo Hypercoagulable state rec: Decrease amio once a day and lopressor and elquis Subjective Date of service: 03/26/18 Principal diagnosis: paroxysmal atrial fibrillation with RVR Interval history: Patient denies any chest pain or shortness of breath Objective Vital Signs Temp Pulse Resp BP BP Pulse Ox 03/26/18 09:37 112/52 03/26/18 07:25 98.3 F 59 L 20 112/52 93 03/26/18 06:04 60 03/26/18 05:22 20 03/26/18 05:06 98.7 F 63 18 112/65 94 03/26/18 04:58 70 03/25/18 23:57 98.2 F 59 L 18 133/72 96 03/25/18 23:35 58 L 133/72 96 03/25/18 21:49 72 119/69 03/25/18 20:32 98 03/25/18 20:23 99.2 F 66 20 112/48 98 03/25/18 16:14 98.5 F 65 20 120/66 96 03/25/18 13:00 63 03/25/18 11:40 98.3 F 58 L 20 108/71 94 - Physical Examination General: No Apparent Distress HEENT: Positive: PERRL, Normocephaly, Mucus Membranes Moist Neck: Positive: neck supple, trachea midline Cardiac: Positive: Reg Rate and Rhythm Lungs: Positive: clear to auscultation Neuro: Positive: Grossly Intact Abdomen: Positive: Soft. Negative: Tender Skin: Negative: Rash Musculoskeletal: No Fluid Collection, No Pain, Normal Range of Motion Extremities: Absent: edema - Labs and Meds CBC 03/26/18 Range/Units 06:25 WBC 10.2 (4.5-11.0) K/mm3 RBC 3.80 (3.65-5.03) M/mm3 Hgb 11.2 (10.1-14.3) gm/dl Hct 33.9 (30.3-42.9) % Plt Count 245 (140-440) K/mm3 Lymph # 1.7 (1.2-5.4) K/mm3 [place] # 1.3 H (0.0-0.8) K/mm3 Eos # 0.3 (0.0-0.4) K/mm3 Baso # 0.0 (0.0-0.1) K/mm3 Comprehensive Metabolic Panel 03/26/18 Range/Units 06:25 Sodium 144 (137-145) mmol/L Potassium 3.1 L (3.6-5.0) mmol/L Chloride 103.5 (98-107) mmol/L Carbon Dioxide 30 (22-30) mmol/L BUN 4 L (7-17) mg/dL Creatinine 0.5 L (0.7-1.2) mg/dL Glucose 88 (65-100) mg/dL Calcium 8.0 L (8.4-10.2) mg/dL - Imaging and Cardiology EKG: report reviewed, image reviewed Echo: report reviewed (08/2016 showed EF 55-60%, trace MR, tract TR, pseudonormalization pattern. ) - Telemetry EKG Rhythm: Sinus Rhythm
[2018-03-26] MEDS: COLACE PO SCH ×2 (12:35→22:25)
[2018-03-26] MEDS: KCL 10MEQ/100ML 10 MEQ/100 ML BAG IV SCH (12:36)
[2018-03-27] MEDS: MERREM/NS 500 MG/50 ML 500 MG/50 ML BAG IV SCH ×6 (00:20→23:24)
[2018-03-27] MEDS: NORCO 5/325 PO PRN ×3 (00:22→19:22)
[2018-03-27 06:36] LABS: BUN/Creatinine Ratio 10; Blood Urea Nitrogen 5 mg/dL (7-17); Calcium 7.8 mg/dL (8.4-10.2); Hemolysis Index 2
[2018-03-27] MEDS: PEPCID PO SCH ×2 (10:00→21:32)
--- NOTE | 2018-03-27 10:10 | Progress Note ---
Assessment and Plan Assessment and plan: --Sepsis, gram-negative rods On meropenem, ID recommend Ertapenem for total 2 weeks Stop date 04/07/2018, get midline Case management to assist with antibiotics/home health --Hypokalemia; replaced per protocol and monitor levels Check magnesium --Left hydronephrosis with left ureteric stone Evaluated by Dr. Snyder, s/p cystoscopy with RPG and left stent placement on 03/21 --Hypertension: Moderate control continue current antihypertensives and when necessary medications Paroxysmal --Atrial fibrillation, with RVR; now rate controlled continue beta blockers Cardiology reduced amiodarone dose to 200 mg daily, continue Eliquis --Morbid obesity, BMI 37.4; dietary modification and exercise, weight reduction when medically stable --History of migraine, takes Lexapro outpatient --DVT prophylaxis, Pt is on Eliquis DC planning. Case management home health, long-term antibiotics for total 2 weeks Discharge in 1-2 days when midline and home antibiotics are set up Plan of care reviewed with the patient and her nurse History Interval history: Patient seen and examined medical records reviewed Patient feels better no new complaints Vital signs reviewed Alert awake oriented 3 not in acute distress Hospitalist Physical - Constitutional Vitals: Temp Pulse Resp BP Pulse Ox 97.9 F 62 20 127/57 91 03/27/18 07:17 03/27/18 07:17 03/27/18 07:17 03/27/18 07:17 03/27/18 07:17 General appearance: Present: no acute distress, well-nourished - EENT Eyes: Present: PERRL, EOM intact - Neck Neck: Present: supple, normal ROM - Respiratory Respiratory effort: normal Respiratory: negative: rales, rhonchi, wheezing - Cardiovascular Rhythm: regular Heart Sounds: Present: S1 & S2 - Extremities Extremities: no ischemia, No edema - Abdominal General gastrointestinal: soft, non-tender, non-distended, normal bowel sounds - Integumentary Integumentary: Present: clear, warm - Psychiatric Psychiatric: appropriate mood/affect, cooperative - Neurologic Neurologic: CNII-XII intact, moves all extremities Results - Labs CBC & Chem 7: 03/26/18 06:25 03/27/18 04:45 Labs: Laboratory Last Values WBC 10.2 K/mm3 (4.5-11.0) 03/26/18 06:25 RBC 3.80 M/mm3 (3.65-5.03) 03/26/18 06:25 Hgb 11.2 gm/dl (10.1-14.3) 03/26/18 06:25 Hct 33.9 % (30.3-42.9) 03/26/18 06:25 MCV 89 fl (79-97) 03/26/18 06:25 MCH 30 pg (28-32) 03/26/18 06:25 MCHC 33 % (30-34) 03/26/18 06:25 RDW 13.4 % (13.2-15.2) 03/26/18 06:25 Plt Count 245 K/mm3 (140-440) 03/26/18 06:25 Lymph % (Auto) 16.5 % (13.4-35.0) 03/26/18 06:25 [place] % (Auto) 12.4 % (0.0-7.3) H 03/26/18 06:25 Eos % (Auto) 3.0 % (0.0-4.3) 03/26/18 06:25 Baso % (Auto) 0.4 % (0.0-1.8) 03/26/18 06:25 Lymph # 1.7 K/mm3 (1.2-5.4) 03/26/18 06:25 [place] # 1.3 K/mm3 (0.0-0.8) H 03/26/18 06:25 Eos # 0.3 K/mm3 (0.0-0.4) 03/26/18 06:25 Baso # 0.0 K/mm3 (0.0-0.1) 03/26/18 06:25 Add Manual Diff Complete 03/23/18 04:34 Total Counted 100 03/23/18 04:34 Seg Neutrophils % 67.7 % (40.0-70.0) 03/26/18 06:25 Seg Neuts % (Manual) 45.0 % (40.0-70.0) 03/23/18 04:34 Band Neutrophils % 23.0 % 03/23/18 04:34 Lymphocytes % (Manual) 14.0 % (13.4-35.0) 03/23/18 04:34 Reactive Lymphs % (Man) 0 % 03/23/18 04:34 Monocytes % (Manual) 12.0 % (0.0-7.3) H 03/23/18 04:34 Eosinophils % (Manual) 0 % (0.0-4.3) 03/23/18 04:34 Basophils % (Manual) 0 % (0.0-1.8) 03/23/18 04:34 Metamyelocytes % 6.0 % 03/23/18 04:34 Myelocytes % 0 % 03/23/18 04:34 Promyelocytes % 0 % 03/23/18 04:34 Blast Cells % 0 % 03/23/18 04:34 Nucleated RBC % Not Reportable 03/23/18 04:34 Seg Neutrophils # 6.9 K/mm3 (1.8-7.7) 03/26/18 06:25 Seg Neutrophils # Man 9.5 K/mm3 (1.8-7.7) H 03/23/18 04:34 Band Neutrophils # 4.8 K/mm3 03/23/18 04:34 Lymphocytes # (Manual) 2.9 K/mm3 (1.2-5.4) 03/23/18 04:34 Abs React Lymphs (Man) 0.0 K/mm3 03/23/18 04:34 Monocytes # (Manual) 2.5 K/mm3 (0.0-0.8) H 03/23/18 04:34 Eosinophils # (Manual) 0.0 K/mm3 (0.0-0.4) 03/23/18 04:34 Basophils # (Manual) 0.0 K/mm3 (0.0-0.1) 03/23/18 04:34 Metamyelocytes # 1.3 K/mm3 03/23/18 04:34 Myelocytes # 0.0 K/mm3 03/23/18 04:34 Promyelocytes # 0.0 K/mm3 03/23/18 04:34 Blast Cells # 0.0 K/mm3 03/23/18 04:34 WBC Morphology Not Reportable 03/23/18 04:34 Hypersegmented Neuts Not Reportable 03/23/18 04:34 Hyposegmented Neuts Not Reportable 03/23/18 04:34 Hypogranular Neuts Not Reportable 03/23/18 04:34 Smudge Cells Not Reportable 03/23/18 04:34 Toxic Granulation Not Reportable 03/23/18 04:34 Toxic Vacuolation Not Reportable 03/23/18 04:34 Dohle Bodies Not Reportable 03/23/18 04:34 Pelger-Huet Anomaly Not Reportable 03/23/18 04:34 Negar Rods Not Reportable 03/23/18 04:34 Platelet Estimate Consistent w auto 03/23/18 04:34 Clumped Platelets Not Reportable 03/23/18 04:34 Plt Clumps, EDTA Not Reportable 03/23/18 04:34 Large Platelets Not Reportable 03/23/18 04:34 Giant Platelets Not Reportable 03/23/18 04:34 Platelet Satelliting Not Reportable 03/23/18 04:34 Plt Morphology Comment Not Reportable 03/23/18 04:34 RBC Morphology Not Reportable 03/23/18 04:34 Dimorphic RBCs Not Reportable 03/23/18 04:34 Polychromasia Not Reportable 03/23/18 04:34 Hypochromasia Not Reportable 03/23/18 04:34 Poikilocytosis Not Reportable 03/23/18 04:34 Anisocytosis 1+ 03/23/18 04:34 Microcytosis Not Reportable 03/23/18 04:34 Macrocytosis Not Reportable 03/23/18 04:34 Spherocytes Not Reportable 03/23/18 04:34 Pappenheimer Bodies Not Reportable 03/23/18 04:34 Sickle Cells Not Reportable 03/23/18 04:34 Target Cells Not Reportable 03/23/18 04:34 Tear Drop Cells Not Reportable 03/23/18 04:34 Ovalocytes Not Reportable 03/23/18 04:34 Helmet Cells Not Reportable 03/23/18 04:34 [place] Bodies Not Reportable 03/23/18 04:34 [place] Rings Not Reportable 03/23/18 04:34 [place] Cells Not Reportable 03/23/18 04:34 Bite Cells Not Reportable 03/23/18 04:34 Crenated Cell Not Reportable 03/23/18 04:34 Elliptocytes Not Reportable 03/23/18 04:34 Acanthocytes (Spur) Not Reportable 03/23/18 04:34 Rouleaux Not Reportable 03/23/18 04:34 Hemoglobin C Crystals Not Reportable 03/23/18 04:34 Schistocytes Not Reportable 03/23/18 04:34 Malaria parasites Not Reportable 03/23/18 04:34 [place] Bodies Not Reportable 03/23/18 04:34 Hem Pathologist Commnt No 03/23/18 04:34 APTT 30.9 Sec. (24.2-36.6) 03/21/18 06:26 Heparin Anti-Xa Level 0.54 U.I./ml (0.3-0.7) 03/22/18 20:39 Sodium 143 mmol/L (137-145) 03/27/18 04:45 Potassium 3.6 mmol/L (3.6-5.0) 03/27/18 04:45 Chloride 102.8 mmol/L (98-107) 03/27/18 04:45 Carbon Dioxide 31 mmol/L (22-30) H 03/27/18 04:45 Anion Gap 13 mmol/L 03/27/18 04:45 BUN 5 mg/dL (7-17) L 03/27/18 04:45 Creatinine 0.5 mg/dL (0.7-1.2) L 03/27/18 04:45 Estimated GFR > 60 ml/min 03/27/18 04:45 BUN/Creatinine Ratio 10 % 03/27/18 04:45 Glucose 91 mg/dL (65-100) 03/27/18 04:45 Calcium 7.8 mg/dL (8.4-10.2) L 03/27/18 04:45 Magnesium 1.80 mg/dL (1.7-2.3) 03/26/18 06:25 Total Bilirubin 0.80 mg/dL (0.1-1.2) 03/21/18 00:35 AST 14 units/L (5-40) 03/21/18 00:35 ALT 14 units/L (7-56) 03/21/18 00:35 Alkaline Phosphatase 78 units/L (35-129) 03/21/18 00:35 Total Protein 7.8 g/dL (6.3-8.2) 03/21/18 00:35 Albumin 4.3 g/dL (3.9-5) 03/21/18 00:35 Albumin/Globulin Ratio 1.2 % 03/21/18 00:35 Lipase 17 units/L (13-60) 03/21/18 00:35 TSH 1.250 mlU/mL (0.270-4.200) 03/22/18 14:02 Free T4 1.37 ng/dL (0.76-1.46) 03/22/18 14:02 Urine Color [place] (Yellow) 03/20/18 Unknown Urine Turbidity Cloudy (Clear) 03/20/18 Unknown Urine pH 5.0 (5.0-7.0) 03/20/18 Unknown Ur Specific [place] 1.020 (1.003-1.030) 03/20/18 Unknown Urine Protein 30 mg/dl mg/dL (Negative) 03/20/18 Unknown Urine Glucose (UA) Neg mg/dL (Negative) 03/20/18 Unknown Urine Ketones 20 mg/dL (Negative) 03/20/18 Unknown Urine Blood Lg (Negative) 03/20/18 Unknown Urine Nitrite Neg (Negative) 03/20/18 Unknown Urine Bilirubin Neg (Negative) 03/20/18 Unknown Urine Urobilinogen 2.0 mg/dL (<2.0) 03/20/18 Unknown Ur Leukocyte Esterase Mod (Negative) 03/20/18 Unknown Urine WBC (Auto) > 182.0 /HPF (0.0-6.0) H 03/20/18 Unknown Urine RBC (Auto) 20.0 /HPF (0.0-6.0) 03/20/18 Unknown U Epithel Cells (Auto) 3.0 /HPF (0-13.0) 03/20/18 Unknown Urine Bacteria (Auto) 3+ /HPF (Negative) 03/20/18 Unknown Hyaline Casts 75 /LPF 03/20/18 Unknown Urine Mucus 3+ /HPF 03/20/18 Unknown
--- NOTE | 2018-03-27 10:16 | Progress Note ---
Assessment and Plan Assessment: 1) Sepsis: resolved. Due to Left pyelonephritis and hydropnephrosis. Blood cx negative 2) Citrobacter freundii Left pyelonephritis. 3) Left hydronephrosis secondary to partially obstructed stone in the distal ureter. - s/p cystoscopy, retrograde pyelogram and left ureteral stent placement on 03/21 4) Acute fever. Resolved. 5) Acute Leukocytosis. Improved 6) Paroxysmal A. fib with RVR. Plan: -continue meropenem. -upon discharge will do ertapenem 1 g IV q day total 14 days until 04/07/18 -place midline -ID clinic f/u on 04/06 Ok to d/c from ID stand point Thank you for your consultation, will follow up with you. Eliane Salazar MD Infectious Diseases Specialist [facility] Subjective Date of service: 03/27/18 Principal diagnosis: paroxysmal atrial fibrillation with RVR Interval history: Feels better, no fever, c/o mild left flank pain. Microbiology: Blood cultures: 03/21 NGTD Urine cultures: 03/21 Citrobacter freundii. Cystoscopy culture: 03/21 Citrobacter freundii MDR only sens to carbapenem, zosyn and fortaz Current Antimicrobials: meropenem 03/25 Previous Antimicrobials: Cefazolin 03/21-03/24 Ceftriaxone 03/21 Zosyn 03/25- Objective - Exam Narrative Exam: General appearance: Alert in NAD, conversant Eyes: anicteric sclerae, moist conjunctivae; PERRLA HENT: Atraumatic; oropharynx clear with moist mucous membranes and no mucosal ulcerations/no oral thrush; normal hard and soft palate. Normal external ears. Neck: Trachea midline; supple, no thyromegaly or lymphadenopathy Lungs: CTA, with normal respiratory effort and no intercostal retractions CV: S1,S2. Abdomen: +BS. Soft. Mild diffuse tenderness. No Left CVA tenderness. Extremities: No c/c/e. Skin: Normal temperature, turgor and texture; no rash, ulcers or subcutaneous nodules Psych: Appropriate affect, alert and oriented to person, place and time. Neuro: alert and oriented x 3. No focal deficits. Lines: PIV. - Constitutional Vitals: Vital Signs Temp Pulse Resp BP Pulse Ox 97.9 F 62 20 127/57 91 03/27/18 07:17 03/27/18 07:17 03/27/18 07:17 03/27/18 07:17 03/27/18 07:17 Temperature -Last 24 Hours Temperature 97.9 F Temperature 98.3 F Temperature 98.7 F Temperature 97.6 F - Labs CBC & Chem 7: 03/26/18 06:25 03/27/18 04:45 Labs: Abnormal lab results 03/27/18 Range/Units 04:45 Carbon Dioxide 31 H (22-30) mmol/L BUN 5 L (7-17) mg/dL Creatinine 0.5 L (0.7-1.2) mg/dL Calcium 7.8 L (8.4-10.2) mg/dL
[2018-03-27] MEDS: LOPRESSOR PO SCH ×2 (10:39→21:32)
[2018-03-27] MEDS: ELIQUIS PO SCH ×2 (10:43→21:32)
[2018-03-27] MEDS: COLACE PO SCH ×2 (10:44→21:33)
[2018-03-27] MEDS: LEXAPRO PO SCH (10:44)
[2018-03-27] MEDS: BABY ASPIRIN PO SCH (10:44)
[2018-03-27] MEDS: CORDARONE PO SCH (10:44)
--- NOTE | 2018-03-27 10:44 | Progress Note ---
Assessment and Plan Assessment: Paroxysmal atrial fibrillation with RVR --> SR; thyroid profile WNL Left hydronephrosis and left ureteric 6.8 mm stone s/p cysto, rpg, left stent placement 03/21/2018 per urology Sepsis, likely due to acute left pyelonephritis Hypokalemia - serum Mg WNL H/o HTN Plan: Cont present cardiac regimen. Currently stable cardiac status. Pt may discharge home from cardiology standpoint. Follow up in our [place] office with Dr. Fernández on 04/06/2018 @ 11:00AM. The patient has been seen in conjunction with Dr. Bell who agrees with the assessment and plan of care. Subjective Date of service: 03/27/18 Principal diagnosis: paroxysmal atrial fibrillation with RVR Interval history: Pt resting comfortably in bed, no current cardiac complaints. currently in SR. Objective Last Vital Signs Temp 97.9 F 03/27/18 07:17 Pulse 62 03/27/18 07:17 Resp 20 03/27/18 07:17 BP 127/57 03/27/18 07:17 Pulse Ox 91 03/27/18 07:17 - Physical Examination General: No Apparent Distress HEENT: Positive: PERRL, Normocephaly, Mucus Membranes Moist Neck: Positive: neck supple, trachea midline Cardiac: Positive: Reg Rate and Rhythm, S1/S2 Lungs: Positive: clear to auscultation Neuro: Positive: Grossly Intact Abdomen: Positive: Soft. Negative: Tender Skin: Negative: Rash Musculoskeletal: No Fluid Collection, No Pain, Normal Range of Motion Extremities: Absent: edema - Labs and Meds Comprehensive Metabolic Panel 03/27/18 Range/Units 04:45 Sodium 143 (137-145) mmol/L Potassium 3.6 (3.6-5.0) mmol/L Chloride 102.8 (98-107) mmol/L Carbon Dioxide 31 H (22-30) mmol/L BUN 5 L (7-17) mg/dL Creatinine 0.5 L (0.7-1.2) mg/dL Glucose 91 (65-100) mg/dL Calcium 7.8 L (8.4-10.2) mg/dL - Imaging and Cardiology EKG: report reviewed, image reviewed Echo: report reviewed (08/2016 showed EF 55-60%, trace MR, tract TR, pseudonormalization pattern. ) - Telemetry EKG Rhythm: Sinus Rhythm
[2018-03-27] MEDS: SODIUM CHLORIDE FLUSH SYRINGE 10 ML IV SCH ×2 (11:31→21:34)
--- NOTE | 2018-03-27 13:11 | XRay Report ---
AP CHEST: HISTORY: Left arm PICC placement AP view of the chest demonstrates a normal mediastinal and cardiac contour with clear lungs and normal bony and soft tissue structures. The left arm PICC terminates in the lower SVC. IMPRESSION: Unremarkable AP chest.
[2018-03-27] MEDS: D5NS 1,000 ML IV SCH (20:12)
[2018-03-27] MEDS: KCL 10MEQ/100ML 10 MEQ/100 ML BAG IV SCH (20:50)
[2018-03-27] MEDS: MORPHINE IV PRN (23:15)
[2018-03-27] MEDS: ZOFRAN IV PRN (23:16)
[2018-03-28] MEDS: MERREM/NS 500 MG/50 ML 500 MG/50 ML BAG IV SCH ×2 (05:26→13:26)
[2018-03-28] MEDS: FIORICET PO PRN ×2 (08:24→15:10)
--- NOTE | 2018-03-28 09:17 | Progress Note ---
Assessment and Plan Assessment and plan: --Sepsis, gram-negative rods On meropenem, ID recommend Ertapenem for total 2 weeks Stop date 04/07/2018, get midline Case management to assist with antibiotics/home health --Hypokalemia; replaced per protocol and monitor levels Check magnesium --Left hydronephrosis with left ureteric stone Evaluated by Dr. Snyder, s/p cystoscopy with RPG and left stent placement on 03/21 --Hypertension: Moderate control continue current antihypertensives and when necessary medications Paroxysmal --Atrial fibrillation, with RVR; now rate controlled continue beta blockers Cardiology reduced amiodarone dose to 200 mg daily, continue Eliquis --Morbid obesity, BMI 37.4; dietary modification and exercise, weight reduction when medically stable --History of migraine, takes Lexapro outpatient --DVT prophylaxis, Pt is on Eliquis DC planning. Case management home health, long-term antibiotics for total 2 weeks Discharge in 1-2 days when midline and home antibiotics are set up Hospitalist Physical - Constitutional Vitals: Temp Pulse Resp BP Pulse Ox 98.3 F 65 18 116/74 93 03/28/18 07:16 03/28/18 07:16 03/28/18 07:16 03/28/18 07:16 03/28/18 07:16 General appearance: Present: no acute distress, well-nourished Results - Labs CBC & Chem 7: 03/26/18 06:25 03/27/18 04:45 Labs: Laboratory Last Values WBC 10.2 K/mm3 (4.5-11.0) 03/26/18 06:25 RBC 3.80 M/mm3 (3.65-5.03) 03/26/18 06:25 Hgb 11.2 gm/dl (10.1-14.3) 03/26/18 06:25 Hct 33.9 % (30.3-42.9) 03/26/18 06:25 MCV 89 fl (79-97) 03/26/18 06:25 MCH 30 pg (28-32) 03/26/18 06:25 MCHC 33 % (30-34) 03/26/18 06:25 RDW 13.4 % (13.2-15.2) 03/26/18 06:25 Plt Count 245 K/mm3 (140-440) 03/26/18 06:25 Lymph % (Auto) 16.5 % (13.4-35.0) 03/26/18 06:25 [place] % (Auto) 12.4 % (0.0-7.3) H 03/26/18 06:25 Eos % (Auto) 3.0 % (0.0-4.3) 03/26/18 06:25 Baso % (Auto) 0.4 % (0.0-1.8) 03/26/18 06:25 Lymph # 1.7 K/mm3 (1.2-5.4) 03/26/18 06:25 [place] # 1.3 K/mm3 (0.0-0.8) H 03/26/18 06:25 Eos # 0.3 K/mm3 (0.0-0.4) 03/26/18 06:25 Baso # 0.0 K/mm3 (0.0-0.1) 03/26/18 06:25 Add Manual Diff Complete 03/23/18 04:34 Total Counted 100 03/23/18 04:34 Seg Neutrophils % 67.7 % (40.0-70.0) 03/26/18 06:25 Seg Neuts % (Manual) 45.0 % (40.0-70.0) 03/23/18 04:34 Band Neutrophils % 23.0 % 03/23/18 04:34 Lymphocytes % (Manual) 14.0 % (13.4-35.0) 03/23/18 04:34 Reactive Lymphs % (Man) 0 % 03/23/18 04:34 Monocytes % (Manual) 12.0 % (0.0-7.3) H 03/23/18 04:34 Eosinophils % (Manual) 0 % (0.0-4.3) 03/23/18 04:34 Basophils % (Manual) 0 % (0.0-1.8) 03/23/18 04:34 Metamyelocytes % 6.0 % 03/23/18 04:34 Myelocytes % 0 % 03/23/18 04:34 Promyelocytes % 0 % 03/23/18 04:34 Blast Cells % 0 % 03/23/18 04:34 Nucleated RBC % Not Reportable 03/23/18 04:34 Seg Neutrophils # 6.9 K/mm3 (1.8-7.7) 03/26/18 06:25 Seg Neutrophils # Man 9.5 K/mm3 (1.8-7.7) H 03/23/18 04:34 Band Neutrophils # 4.8 K/mm3 03/23/18 04:34 Lymphocytes # (Manual) 2.9 K/mm3 (1.2-5.4) 03/23/18 04:34 Abs React Lymphs (Man) 0.0 K/mm3 03/23/18 04:34 Monocytes # (Manual) 2.5 K/mm3 (0.0-0.8) H 03/23/18 04:34 Eosinophils # (Manual) 0.0 K/mm3 (0.0-0.4) 03/23/18 04:34 Basophils # (Manual) 0.0 K/mm3 (0.0-0.1) 03/23/18 04:34 Metamyelocytes # 1.3 K/mm3 03/23/18 04:34 Myelocytes # 0.0 K/mm3 03/23/18 04:34 Promyelocytes # 0.0 K/mm3 03/23/18 04:34 Blast Cells # 0.0 K/mm3 03/23/18 04:34 WBC Morphology Not Reportable 03/23/18 04:34 Hypersegmented Neuts Not Reportable 03/23/18 04:34 Hyposegmented Neuts Not Reportable 03/23/18 04:34 Hypogranular Neuts Not Reportable 03/23/18 04:34 Smudge Cells Not Reportable 03/23/18 04:34 Toxic Granulation Not Reportable 03/23/18 04:34 Toxic Vacuolation Not Reportable 03/23/18 04:34 Dohle Bodies Not Reportable 03/23/18 04:34 Pelger-Huet Anomaly Not Reportable 03/23/18 04:34 Negar Rods Not Reportable 03/23/18 04:34 Platelet Estimate Consistent w auto 03/23/18 04:34 Clumped Platelets Not Reportable 03/23/18 04:34 Plt Clumps, EDTA Not Reportable 03/23/18 04:34 Large Platelets Not Reportable 03/23/18 04:34 Giant Platelets Not Reportable 03/23/18 04:34 Platelet Satelliting Not Reportable 03/23/18 04:34 Plt Morphology Comment Not Reportable 03/23/18 04:34 RBC Morphology Not Reportable 03/23/18 04:34 Dimorphic RBCs Not Reportable 03/23/18 04:34 Polychromasia Not Reportable 03/23/18 04:34 Hypochromasia Not Reportable 03/23/18 04:34 Poikilocytosis Not Reportable 03/23/18 04:34 Anisocytosis 1+ 03/23/18 04:34 Microcytosis Not Reportable 03/23/18 04:34 Macrocytosis Not Reportable 03/23/18 04:34 Spherocytes Not Reportable 03/23/18 04:34 Pappenheimer Bodies Not Reportable 03/23/18 04:34 Sickle Cells Not Reportable 03/23/18 04:34 Target Cells Not Reportable 03/23/18 04:34 Tear Drop Cells Not Reportable 03/23/18 04:34 Ovalocytes Not Reportable 03/23/18 04:34 Helmet Cells Not Reportable 03/23/18 04:34 [place] Bodies Not Reportable 03/23/18 04:34 [place] Rings Not Reportable 03/23/18 04:34 [place] Cells Not Reportable 03/23/18 04:34 Bite Cells Not Reportable 03/23/18 04:34 Crenated Cell Not Reportable 03/23/18 04:34 Elliptocytes Not Reportable 03/23/18 04:34 Acanthocytes (Spur) Not Reportable 03/23/18 04:34 Rouleaux Not Reportable 03/23/18 04:34 Hemoglobin C Crystals Not Reportable 03/23/18 04:34 Schistocytes Not Reportable 03/23/18 04:34 Malaria parasites Not Reportable 03/23/18 04:34 Colin Bodies Not Reportable 03/23/18 04:34 Hem Pathologist Commnt No 03/23/18 04:34 APTT 30.9 Sec. (24.2-36.6) 03/21/18 06:26 Heparin Anti-Xa Level 0.54 U.I./ml (0.3-0.7) 03/22/18 20:39 Sodium 143 mmol/L (137-145) 03/27/18 04:45 Potassium 3.6 mmol/L (3.6-5.0) 03/27/18 04:45 Chloride 102.8 mmol/L (98-107) 03/27/18 04:45 Carbon Dioxide 31 mmol/L (22-30) H 03/27/18 04:45 Anion Gap 13 mmol/L 03/27/18 04:45 BUN 5 mg/dL (7-17) L 03/27/18 04:45 Creatinine 0.5 mg/dL (0.7-1.2) L 03/27/18 04:45 Estimated GFR > 60 ml/min 03/27/18 04:45 BUN/Creatinine Ratio 10 % 03/27/18 04:45 Glucose 91 mg/dL (65-100) 03/27/18 04:45 Calcium 7.8 mg/dL (8.4-10.2) L 03/27/18 04:45 Magnesium 1.80 mg/dL (1.7-2.3) 03/26/18 06:25 Total Bilirubin 0.80 mg/dL (0.1-1.2) 03/21/18 00:35 AST 14 units/L (5-40) 03/21/18 00:35 ALT 14 units/L (7-56) 03/21/18 00:35 Alkaline Phosphatase 78 units/L (35-129) 03/21/18 00:35 Total Protein 7.8 g/dL (6.3-8.2) 03/21/18 00:35 Albumin 4.3 g/dL (3.9-5) 03/21/18 00:35 Albumin/Globulin Ratio 1.2 % 03/21/18 00:35 Lipase 17 units/L (13-60) 03/21/18 00:35 TSH 1.250 mlU/mL (0.270-4.200) 03/22/18 14:02 Free T4 1.37 ng/dL (0.76-1.46) 03/22/18 14:02 Urine Color [place] (Yellow) 03/20/18 Unknown Urine Turbidity Cloudy (Clear) 03/20/18 Unknown Urine pH 5.0 (5.0-7.0) 03/20/18 Unknown Ur Specific [place] 1.020 (1.003-1.030) 03/20/18 Unknown Urine Protein 30 mg/dl mg/dL (Negative) 03/20/18 Unknown Urine Glucose (UA) Neg mg/dL (Negative) 03/20/18 Unknown Urine Ketones 20 mg/dL (Negative) 03/20/18 Unknown Urine Blood Lg (Negative) 03/20/18 Unknown Urine Nitrite Neg (Negative) 03/20/18 Unknown Urine Bilirubin Neg (Negative) 03/20/18 Unknown Urine Urobilinogen 2.0 mg/dL (<2.0) 03/20/18 Unknown Ur Leukocyte Esterase Mod (Negative) 03/20/18 Unknown Urine WBC (Auto) > 182.0 /HPF (0.0-6.0) H 03/20/18 Unknown Urine RBC (Auto) 20.0 /HPF (0.0-6.0) 03/20/18 Unknown U Epithel Cells (Auto) 3.0 /HPF (0-13.0) 03/20/18 Unknown Urine Bacteria (Auto) 3+ /HPF (Negative) 03/20/18 Unknown Hyaline Casts 75 /LPF 03/20/18 Unknown Urine Mucus 3+ /HPF 03/20/18 Unknown
--- NOTE | 2018-03-28 10:15 | Progress Note ---
Assessment and Plan Assessment: 1) Sepsis: resolved. Due to Left pyelonephritis and hydropnephrosis. Blood cx negative 2) Citrobacter freundii Left pyelonephritis. 3) Left hydronephrosis secondary to partially obstructed stone in the distal ureter. - s/p cystoscopy, retrograde pyelogram and left ureteral stent placement on 03/21 4) Acute fever. Resolved. 5) Acute Leukocytosis. Improved 6) Paroxysmal A. fib with RVR. Plan: -continue meropenem. -upon discharge will do ertapenem 1 g IV q day total 14 days until 04/07/18. May need to be extended if further urologic procedure done in near future -ID clinic f/u on 04/06 Ok to d/c from ID stand point. I am signing off Thank you for your consultation, will follow up with you. Eliane Salazar MD Infectious Diseases Specialist [facility] Subjective Date of service: 03/28/18 Principal diagnosis: paroxysmal atrial fibrillation with RVR Interval history: Feels better, no fever, no left flank pain. Microbiology: Blood cultures: 03/21 NGTD Urine cultures: 03/21 Citrobacter freundii. Cystoscopy culture: 03/21 Citrobacter freundii MDR only sens to carbapenem, zosyn and fortaz Current Antimicrobials: meropenem 03/25 Previous Antimicrobials: Cefazolin 03/21-03/24 Ceftriaxone 03/21 Zosyn 03/25- Objective - Exam Narrative Exam: General appearance: Alert in NAD, conversant Eyes: anicteric sclerae, moist conjunctivae; PERRLA HENT: Atraumatic; oropharynx clear with moist mucous membranes and no mucosal ulcerations/no oral thrush; normal hard and soft palate. Normal external ears. Neck: Trachea midline; supple, no thyromegaly or lymphadenopathy Lungs: CTA, with normal respiratory effort and no intercostal retractions CV: S1,S2. Abdomen: +BS. Soft. Mild diffuse tenderness. No Left CVA tenderness. Extremities: No c/c/e. Skin: Normal temperature, turgor and texture; no rash, ulcers or subcutaneous nodules Psych: Appropriate affect, alert and oriented to person, place and time. Neuro: alert and oriented x 3. No focal deficits. Lines: PIV. - Constitutional Vitals: Vital Signs Temp Pulse Resp BP Pulse Ox 98.3 F 65 18 116/74 93 03/28/18 07:16 03/28/18 07:16 03/28/18 07:16 03/28/18 07:16 03/28/18 07:16 Temperature -Last 24 Hours Temperature 98.3 F Temperature 98.1 F Temperature 97.9 F Temperature 98.5 F - Labs CBC & Chem 7: 03/26/18 06:25 03/27/18 04:45
[2018-03-28] MEDS: LEXAPRO PO SCH (10:52)
[2018-03-28] MEDS: CORDARONE PO SCH (10:52)
[2018-03-28] MEDS: PEPCID PO SCH (10:52)
[2018-03-28] MEDS: BABY ASPIRIN PO SCH (10:52)
[2018-03-28] MEDS: LOPRESSOR PO SCH (10:52)
[2018-03-28] MEDS: COLACE PO SCH (10:53)
[2018-03-28] MEDS: SODIUM CHLORIDE FLUSH SYRINGE 10 ML IV SCH (10:55)
[2018-03-28] MEDS: ELIQUIS PO SCH (11:07)
--- NOTE | 2018-03-28 16:21 | Discharge Summary ---
Providers - Providers Date of Admission: 03/21/18 08:03 Date of discharge: 03/28/18 Attending physician: QUYNH CARRENO 03/21/18 06:08 Consult to Physician [CONS] Stat Comment: Consulting Provider: RUBY SNYDER Physician Instructions: Reason For Exam: infected ureteral stone 03/22/18 12:42 Consult to Physician [CONS] Routine Comment: Consulting Provider: DAVID OSBORNE Physician Instructions: Reason For Exam: atrial fib 03/25/18 07:08 Consult to Physician [CONS] Routine Comment: Consulting Provider: JUAN VAN Physician Instructions: Reason For Exam: abx recommendation for UTI 03/27/18 10:21 Consult to Case Management [CONS] Stat Services Needed at Discharge: Other Notified:: administration specialist Additional Physician Instructions: [facility] M [phone] O [phone] F [phone] OUTPATIENT PARENTERAL ANTIBIOTIC THERAPY ORDERS Diagnoses: MDR Citrobacter pyelonephritis Antimicrobial administration: ertapenem 1 g IV q day total 14 days until 04/07/18. Remove midline after last dose unless otherwise instructed. Lines: midline Lab monitoring: CBC, BMP once a week preferly on Tuesday morning. Please fax results to [phone] and call [phone] for critical lab results. ID clinic f/u on 04/06. PATIENT HAS TO CALL OFFICE TO MAKE APPOINTMENT Eliane Salazar Date: 03/27/18 03/27/18 10:26 Consult to PICC Line RN [CONS] Stat Reason For Exam: IV abx for 2 weeks Type Line:: Midline Primary care physician: LEONARD MOROCHO Hospitalization Condition: Stable Hospital course: --Sepsis, gram-negative rods On meropenem, ID recommend Ertapenem for total 2 weeks Stop date 04/07/2018, get midline Case management to assist with antibiotics/home health --Hypokalemia; replaced per protocol and monitor levels Check magnesium --Left hydronephrosis with left ureteric stone Evaluated by Dr. Snyder, s/p cystoscopy with RPG and left stent placement on 03/21 --Hypertension: Moderate control continue current antihypertensives and when necessary medications Paroxysmal --Atrial fibrillation, with RVR; now rate controlled continue beta blockers Cardiology reduced amiodarone dose to 200 mg daily, continue Eliquis --Morbid obesity, BMI 37.4; dietary modification and exercise, weight reduction when medically stable --History of migraine, takes Lexapro outpatient Disposition: [id number] HOME UNDER HOME [facility] Time spent for discharge: 33 min Core Measure Documentation - Palliative Care Palliative Care/ Comfort Measures: Not Applicable - Core Measures Any of the following diagnoses?: none Exam - Constitutional Vitals: Temp Pulse Resp BP Pulse Ox 98.3 F 54 L 18 117/72 96 03/28/18 11:42 03/28/18 11:42 03/28/18 11:42 03/28/18 11:42 03/28/18 11:42 Plan Activity: advance as tolerated Diet: low salt Additional Instructions: Ertapenem1 g IV daily total of 14 days, stop date 04/07[recommended by ID] Follow up with: RODERICK HESTER MD [Staff Physician] - 7 Days (Follow up in our [place] office with Dr. Fernández on 04/06/2018 @ 11:00AM. ) LEONARD MOROCHO MD [Primary Care Provider] - 3-5 Days RUBY SNYDER MD [Staff Physician] - 7 Days ELIANE KIM MD [Staff Physician] - 04/06/18 Prescriptions: Amiodarone [Cordarone 200 MG TAB] 200 mg PO QDAY #30 tablet Apixaban [Eliquis] 5 mg PO Q12HR #60 tablet Aspirin [Aspirin BABY CHEW TAB] 81 mg PO QDAY #30 tab.chew Butalb/Acetamin/Caff 50-325-40 [Fioricet] 1 tab PO Q4H PRN #20 tablet PRN Reason: Headache Famotidine [Pepcid] 10 mg PO BID #30 tablet
[2018-03-28 16:50] VITALS: BP 123/75
== END 2018-03-28 18:41 | disposition home health service (06) | DRG 872 ==
LOC: ED 22:16 → 3A 03-21 08:03 → 4A 03-22 16:24
PROVIDERS: ADMIT Internal Medicine; ATTEND Internal Medicine
PROC: BT1FYZZ Fluoroscopy of Left Kidney, Ureter and Bladder using Other Contrast (ICD-10-PCS; principal; 2018-03-21)
PROC: 0T778DZ Dilation of Left Ureter with Intraluminal Device, Via Natural or Artificial Opening Endoscopic (ICD-10-PCS; 2018-03-21)
PROC: 02HV33Z Insertion of Infusion Device into Superior Vena Cava, Percutaneous Approach (ICD-10-PCS; 2018-03-27)
DX: A41.50 Gram-negative sepsis, unspecified (principal); N13.6 Pyonephrosis; D68.69 Other thrombophilia; E66.01 Morbid (severe) obesity due to excess calories; G43.909 Migraine, unspecified, not intractable, without status migrainosus; E87.6 Hypokalemia; K21.9 Gastro-esophageal reflux disease without esophagitis; I10 Essential (primary) hypertension; B96.89 Other specified bacterial agents as the cause of diseases classified elsewhere; I48.0 Paroxysmal atrial fibrillation; Z68.37 Body mass index [BMI] 37.0-37.9, adult; Z79.899 Other long term (current) drug therapy; Z90.710 Acquired absence of both cervix and uterus; Z80.8 Family history of malignant neoplasm of other organs or systems
CPT/HCPCS: 36415; 71045; 74176; 74420; 80048; 80053; 81001; 83690; 83735; 84439; 84443; 85007; 85014; 85018; 85025; 85027; 85520; 85730; 87040; 87076; 87086; 87186; 90732; 93005; 93010; 93306; 94760; 96365; 96375; C1758; C1769; C2617; J0282; J0690; J0696; J1160; J1170; J1644; J1650; J2185; J2250; J2270; J2405; J2543; J2704; J3010; J3480; J7042; J7060; J7120; Q9967

== ENCOUNTER 2018-04-27 09:23 | Day surgery (SDC) | payer BC ==
--- NOTE | 2018-04-27 09:14 | Anesthesia Day of Surgery ---
Anesthesia Day of Surgery - Day of Surgery Patient Examined: Yes Patient H&P Reviewed: Yes Patient is NPO: Yes
[~2018-04-27 09:23] MED LIST: ANCEF/STERILE WATER 2 GM/20 ML IV NR; OMNIPAQUE 300 MG/50 ML (CATH LAB) IV ONE; WATER FOR IRRIG STERILE IR ONE; ZOFRAN IV PRN
[2018-04-27] MEDS ORDERED: NACL 0.9% 1000 ML 1,000 ML IV SCH ×2 (10:00→11:00)
[2018-04-27] MEDS ORDERED: VERSED IV NR (10:00)
[2018-04-27] MEDS ORDERED: NACL BACTERIOSTATIC INFILTRATI ONE (10:08)
[2018-04-27] MEDS ORDERED: PEPCID IV ONE (10:08)
[2018-04-27 10:59] LABS: INR 0.9 (0.87-1.13)
[2018-04-27 11:00] LABS: Partial Thromboplastin Time 27.1 Sec. (24.2-36.6)
[2018-04-27] MEDS ORDERED: ZOFRAN ONE (11:00)
[2018-04-27] MEDS ORDERED: XYLOCAINE MPF 2% ONE (11:13)
[2018-04-27] MEDS ORDERED: DIPRIVAN 10 MG/ML IV ONE (11:13)
[2018-04-27] MEDS ORDERED: ePHEDrine 50 MG/5 ML-0.9% NACL IV ONE (11:22)
[2018-04-27] MEDS ORDERED: WATER FOR IRRIG STERILE IR ONE (11:31)
[2018-04-27] MEDS ORDERED: OMNIPAQUE 300 MG/50 ML (CATH LAB) IV ONE (11:35)
[2018-04-27] MEDS ORDERED: NEO SYNEPHRINE/NS Syringe(OR USE) IV ONE (11:47)
--- NOTE | 2018-04-27 11:57 | Post Operative Note ---
Pre-op diagnosis: left ureteral stone Post-op diagnosis: same Findings: as above Procedure: cysto L ureteroscopy j stent Anesthesia: GETA Surgeon: EZIO BANKS Estimated blood loss: none Pathology: list (stone) Specimen disposition: given to patient/family Condition: stable Disposition: PACU
--- NOTE | 2018-04-27 11:58 | Discharge Summary ---
Short Stay Discharge Plan Activity: other (no straining ) Weight Bearing Status: Full Weight Bearing Diet: low fat, low cholesterol, low salt Special Instructions: other (inc fluids ) Durable Medical Equipment Needed Upon Discharge: other (has j stent ) Follow up with: LEONARD MOROCHO MD [Primary Care Provider] - 7 Days RUBY AMAYA MD [Staff Physician] - 7 Days
[2018-04-27] MEDS: DILAUDID IV PRN ×4 (12:08→12:55)
[2018-04-27] MEDS ORDERED: PERCOCET 5/325 ONE (12:43)
[2018-04-27] MEDS ORDERED: PERCOCET 5/325 PO PRN (12:43)
--- NOTE | 2018-04-27 13:02 | Operative Report ---
PREOPERATIVE DIAGNOSES: Left lower ureteral stone, previous sepsis. POSTOPERATIVE DIAGNOSES: Left lower ureteral stone, previous sepsis. PROCEDURE: Cystoscopy, right retrograde and left retrograde and left ureteroscopy with laser of large stone and stone extraction, double-J stent replacement. SURGEON: Manuelito Galarza MD ANESTHESIA: General. FINDINGS: This is a woman who presented with sepsis. She now presents for stone retrieval. She has had obstructing stone, left side. DESCRIPTION OF PROCEDURE: The patient brought to the operating room and placed on the operating table. Following induction of anesthesia, she was placed in lithotomy position and prepped and draped in usual sterile fashion. Because the previous CT said something about her right side, we did a right retrograde, which showed a delicate collecting system and delicate ureter. No further manipulation of the right side was done. The left stent was grasped and a wire coiled in the kidney. Ureteroscopy showed a 6-7 mm stone at the junction of the lower and mid ureter. It was too big to grasp, we tried it with a grasper. So we lasered it into about 4-5 fragments which were extracted with the ureteroscope. The patient tolerated the procedure well. A double J was replaced, we left the string, family notified, brought to recovery room in stable condition. JOB# [id number] RYAN/NOAH
[2018-04-27 14:16] VITALS: BP 117/75
--- NOTE | 2018-04-27 14:29 | Post Anesthesia Evaluation ---
- Post Anesthesia Evaluation Patient Participated: Yes Airway Patent: Yes Stable Respiratory Function: Yes Nausea/Vomiting: No Temp > 96.8F: Yes Pain Manageable: Yes Adequeate Hydration: Yes Anesthesia Complications: No
--- NOTE | 2018-04-27 14:29 | Anesthesia Consultation ---
Anesthesia Consult and Med Hx Date of service: 04/27/18 - Airway Anesthetic Teeth Evaluation: Good ROM Head & Neck: Adequate Mental/Hyoid Distance: Adequate Mallampati Class: Class II Intubation Access Assessment: Probably Good - Pulmonary Exam CTA: Yes - Cardiac Exam Cardiac Exam: RRR - Pre-Operative Health Status ASA Pre-Surgery Classification: ASA2 Proposed Anesthetic Plan: General - Pulmonary Hx Smoking: No Hx Sleep Apnea: No (WAYLON PRE SCREEN HIGH RISK.) - Cardiovascular System Hx Hypertension: Yes (X 5 YRS) Hx Pacemaker: No Hx Internal Defibrillator: No - Central Nervous System Hx Back Pain: Yes - Hematic Hx Anemia: Yes (2008 , RESOLVED) - Other Systems Hx Cancer: Yes (SKIN CA ONLY ON NOSE- REMOVED)
--- NOTE | 2018-04-28 07:29 | Fluoroscopy Report ---
FLUOROSCOPY RETROGRADE UROGRAPHY: HISTORY: Left ureteral stone. FINDINGS: Fluoroscopy was provided by radiology during retrograde urography by the urologist. [address] Officer film of the abdomen demonstrates a left ureteral stent in place. An approximate 5 mm calcification overlies the distal stent consistent with a ureteral stone. The stone was removed with the use of a laser and grasper. Ureteroscopy was also performed. Left ureteral stent replacement was also performed. There is good drainage of the left collecting system on the final images. The right pyelogram is normal. IMPRESSION: Left ureteral stone removal. Left ureteral stent exchange.
== END 2018-04-27 14:06 | disposition home or self-care (01) ==
LOC: OR 09:23
PROVIDERS: ATTEND Urology
DX: N20.1 Calculus of ureter (principal); K21.9 Gastro-esophageal reflux disease without esophagitis; I10 Essential (primary) hypertension; M19.90 Unspecified osteoarthritis, unspecified site; I48.91 Unspecified atrial fibrillation; F41.9 Anxiety disorder, unspecified; F32.9 Major depressive disorder, single episode, unspecified; F17.210 Nicotine dependence, cigarettes, uncomplicated; Z79.01 Long term (current) use of anticoagulants; Z90.710 Acquired absence of both cervix and uterus; Z85.828 Personal history of other malignant neoplasm of skin; Z98.890 Other specified postprocedural states
CPT/HCPCS: 36415; 50590; 74420; 85610; 85730; A4217; C1758; C1769; C2617; J0690; J1170; J2250; J2370; J2405; J2704; J7030; Q9967